=== PATIENT | male | born 1945 | race Caucasian/White ===

== ENCOUNTER 2022-04-05 06:11 | Outpatient (REF) | payer MEDICARE, SELFPAY ==
[2022-04-05 12:03] LABS: Hematocrit 48.7 % (42.0-52.0); Hemoglobin 16.5 g/dl (14.0-18.0); Mean Corpuscular HGB Conc 33.9 g/dl (31.0-36.0); Mean Corpuscular Hemoglobin 30.7 pg (27.0-33.0); Mean Corpuscular Volume 90.7 fL (80.0-98.0); Mean Platelet Volume 9.9 fL (9.4-12.4); Platelet Count 214 X10*3/uL (160-400); Red Blood Count 5.37 X10*6/uL (4.60-5.80); Red Cell Distribution Width 12.2 % (11.0-16.0)
[2022-04-05 12:12] LABS: Alanine Aminotransferase 22 U/L (0-40); Alkaline Phosphatase 104 U/L (39-117); Anion Gap 14 (12-20); Aspartate Amino Transferase 21 U/L (5-37); Bilirubin Total 1.2 mg/dL (0.0-1.0); Blood Urea Nitrogen 10 mg/dL (9-16); Calcium 9.5 mg/dL (8.4-10.2); Carbon Dioxide 32 mmol/L (22-29); Chloride 99 mmol/L (96-108); Cholesterol 257 mg/dL; Estimated Glomerular Filt Rate > 60; Glucose Fasting 241 mg/dL (60-99); HDL Cholesterol 70 mg/dL; Iron 139 mcg/dL (45-160); LDL Cholesterol Calculated 157 mg/dl; Percent Iron Saturation 49 % (15-50); Potassium 4.6 mmol/L (3.3-5.1); Sodium 140 mmol/L (135-145); Total Iron Binding Capacity 282 mcg/dL (228-428); Total Protein 7.1 g/dL (6.5-8.0); Triglycerides 150 mg/dL; Unsaturated Iron Binding 143 ug/dL
[2022-04-05 12:34] LABS: TSH reflex Free T4 2.41 uIU/mL (0.32-4.0)
== END 2022-04-05 06:12 | disposition home or self-care (01) ==
LOC: HO.HMGCLDS 06:11
PROVIDERS: PCP Physician Assistant; Visit Provider Physician Assistant
DX: Z13.29 Encounter for screening for other suspected endocrine disorder (principal); Z13.220 Encounter for screening for lipoid disorders; R06.02 Shortness of breath; D50.9 Iron deficiency anemia, unspecified
CPT/HCPCS: 36415; 80053; 80061; 83540; 84443; 85027

== ENCOUNTER 2022-10-23 06:11 | Outpatient (REF) | payer MEDICARE, SELFPAY ==
[2022-10-23 11:19] LABS: MANUAL DIFF FLAG NO
[2022-10-23 11:28] LABS: Basophils Absolute Auto 0.1 X10*3/uL (0.0-0.2); Basophils Percent Auto 0.7 % (0-2); Eosinophils Absolute Auto 0.3 X10*3/uL (0.0-0.4); Eosinophils Percent Auto 4.3 % (0-4); Hematocrit 46.1 % (42.0-52.0); Hemoglobin 15.4 g/dl (14.0-18.0); Imm Gran Abs Auto 0.02 X10*3/uL (0.00-0.03); Imm Gran Pct Auto 0.3 % (0.0-0.4); Lymphocytes Absolute Auto 2.4 X10*3/uL (1.2-4.9); Lymphocytes Percent Auto 32.3 % (20-40); Mean Corpuscular HGB Conc 33.4 g/dl (31.0-36.0); Mean Corpuscular Hemoglobin 30.4 pg (27.0-33.0); Mean Corpuscular Volume 91.1 fL (80.0-98.0); Mean Platelet Volume 9.4 fL (9.4-12.4); Monocytes Absolute Auto 0.7 X10*3/uL (0.1-1.2); Monocytes Percent Auto 9.2 % (2-11); Neutrophils Absolute Auto 3.9 x10*3/uL (2.0-8.3); Neutrophils Percent Auto 53.2 % (45-73); Platelet Count 245 X10*3/uL (160-400); Red Blood Count 5.06 X10*6/uL (4.60-5.80); Red Cell Distribution Width 12.6 % (11.0-16.0); White Blood Count 7.4 X10*3/uL (4.8-10.8)
[2022-10-23 12:15] LABS: Creatinine Urine 117.45 mg/dL; Microalbum/Creatinine Ratio Ur 5.9 ug/mg cr
[2022-10-23 12:30] LABS: Alanine Aminotransferase 15 U/L (0-40); Alkaline Phosphatase 94 U/L (39-117); Anion Gap 11 (12-20); Aspartate Amino Transferase 17 U/L (5-37); Bilirubin Total 0.8 mg/dL (0.0-1.0); Blood Urea Nitrogen 12 mg/dL (9-16); Calcium 9.6 mg/dL (8.4-10.2); Carbon Dioxide 35 mmol/L (22-29); Chloride 99 mmol/L (96-108); Cholesterol 235 mg/dL; Estimated Glomerular Filt Rate > 60; Glucose Fasting 139 mg/dL (60-99); HDL Cholesterol 69 mg/dL; LDL Cholesterol Calculated 138 mg/dl; Potassium 4.3 mmol/L (3.3-5.1); Prostate Specific Antigen Scr 5.05 ng/mL (<0.05-4.0); Sodium 141 mmol/L (135-145); TSH reflex Free T4 3.07 uIU/mL (0.32-4.0); Total Protein 7.1 g/dL (6.5-8.0); Triglycerides 144 mg/dL
== END 2022-10-23 06:12 | disposition home or self-care (01) ==
LOC: HO.HMGCLDS 06:11
PROVIDERS: PCP Physician Assistant; Visit Provider Physician Assistant
DX: Z12.5 Encounter for screening for malignant neoplasm of prostate (principal); E11.65 Type 2 diabetes mellitus with hyperglycemia
CPT/HCPCS: 36415; 80053; 80061; 82043; 84153; 84443; 85025

== ENCOUNTER 2023-07-28 06:22 | Outpatient (REF) | payer MEDICARE, SELFPAY ==
[2023-07-28 11:46] LABS: Hematocrit 45.8 % (42.0-52.0); Hemoglobin 15.2 g/dl (14.0-18.0); Mean Corpuscular HGB Conc 33.2 g/dl (31.0-36.0); Mean Corpuscular Hemoglobin 30.5 pg (27.0-33.0); Mean Corpuscular Volume 91.8 fL (80.0-98.0); Mean Platelet Volume 9.1 fL (9.4-12.4); Platelet Count 224 X10*3/uL (160-400); Red Blood Count 4.99 X10*6/uL (4.60-5.80); Red Cell Distribution Width 12.5 % (11.0-16.0); White Blood Count 8.1 X10*3/uL (4.8-10.8)
[2023-07-28 12:07] LABS: Alanine Aminotransferase 15 U/L (0-40); Albumin Level 3.9 g/dL (3.5-5.0); Alkaline Phosphatase 90 U/L (39-117); Anion Gap 13 (12-20); Aspartate Amino Transferase 21 U/L (5-37); Bilirubin Total 0.7 mg/dL (0.0-1.0); Blood Urea Nitrogen 7 mg/dL (9-16); Calcium 9.1 mg/dL (8.4-10.2); Carbon Dioxide 30 mmol/L (22-29); Chloride 101 mmol/L (96-108); Cholesterol 226 mg/dL (<200); Estimated Glomerular Filt Rate > 60; Glucose Fasting 141 mg/dL (60-99); HDL Cholesterol 57 mg/dL (>40); LDL Cholesterol Calculated 132 mg/dL (<100); Potassium 4.3 mmol/L (3.3-5.1); Sodium 140 mmol/L (135-145); Triglycerides 186 mg/dL (<150)
[2023-07-28 12:20] LABS: Prostate Specific Antigen Scr 5.83 ng/mL (<0.05-4.0)
== END 2023-07-28 06:23 | disposition home or self-care (01) ==
LOC: HO.HMGCLDS 06:22
PROVIDERS: PCP Physician Assistant; Visit Provider Physician Assistant
DX: Z12.5 Encounter for screening for malignant neoplasm of prostate (principal); R97.20 Elevated prostate specific antigen [PSA]; E78.2 Mixed hyperlipidemia
CPT/HCPCS: 36415; 80053; 80061; 84153; 84443; 85027

== ENCOUNTER 2023-07-31 13:34 | Outpatient (AMB) | payer MEDICARE, SELFPAY ==
--- NOTE | 2023-07-31 13:36 | MHC.PC.OV ---
Vital Signs 07/31/23 13:40 Height 5 ft 11 in Weight 195 lb 8 oz BMI 27.3 BP 150/88 H Blood Pressure Location Lt brachial Position Sitting Pulse 104 H Pulse Source Pulse Oximeter Pulse Oximetry (%) 94 Oxygen Delivery Method Room Air Intake Visit Reasons: f/u DMII Intake Note: Patient is here to follow up on DMII. Centrifuge Separator Tender Required: No Clinical Laboratory Manager: Not Required per policy Accompanied by: Self / Same As Patient Allergies No Known Allergies Allergy (Verified 07/31/23 13:53) Medication List - Last Reconciled 07/31/23 by Sky Fletcher PA-C albuterol sulfate 90 mcg/actuation 1 inh inhalation QID PRN 30 days blood sugar diagnostic (FreeStyle Lite Strips) As directed blood-glucose meter (FreeStyle Lite Meter kit) As directed lancets (FreeStyle Lancets) As directed metformin 500 mg PO DAILY 30 days Tobacco use date assessed: 07/31/23 Fall risk assessment: No Falls in past year Last assessed Fall Risk: 07/31/23 Dental Screening Dental Screen Date: 07/31/23 Did you have a dental visit in the last 12 months?: Yes Did you have a dental problem in the last 6 months where you did not have access to dental care?: No Was dental information given to patient?: Patient has dentist HPI f/u DMII HPI Details Patient is a 77-year-old male here today for follow-up visit.? Pmhx of type 2 diabetes, hyperlipidemia Elevated blood pressure readings:? Home readings are 110- 120s systolic .? He reports he has always had elevated blood pressures at doctor visits.? Likely has white coat hypertension.? Hold off on blood pressure medication at this time. .. Type 2 diabetes :? Today's A1c is elevated at 7.4, he has unfortunately gained some weight since last office visit Patient continues metformin 500 daily which has been decreased recently due to having low blood sugars. He reports some dietary indiscretion. .. Elevated PSA: He is interested in starting saw palmetto for his prostate. Advised on urology evaluation patient declines at this time. He does report at times having weak urinary stream and nocturia. Has been trying Saw palmetto. Will continue to follow PSA HLD: He does have LDL 135 and does understand this is elevated cardiovascular risk.? He is not interested in statin therapy. Laboratory Tests 10/23/22 10/31/22 06:26 15:25 Fasting Glucose 139 H Hgb A1c (Clinic) 6.4 H Cholesterol 235 LDL Cholesterol, C alc 138 PSA Screen 5.05 H TSH 3.07 PFSH Medical History Cataracts, bilateral Surgical History History of cataract Social History Housing: House Alcohol intake: never Patient Tobacco Use Status: Former Tobacco user Tobacco use type: Cigarette e-Cigarette/Vaping Use: Never Used Second Hand Smoke Exposure: No service: Yes Current occupational status: retired Cognitive needs: No Hearing needs: No Vision needs: Yes Questionnaire Thrive Questionnaire Date Thrive assessed: 10/31/22 MARIA DEL CARMEN-7 AMB Questionnaire MARIA DEL CARMEN-7 Date MARIA DEL CARMEN - 7 assessed: 10/31/22 Source: Developed by Drs. Lucio Estrada, Kera Frederick, Alvino Gilliam and colleagues, with an educational julian from [employer]. Review of Systems Const Denies headache(s) Eyes Denies loss of vision ENT Denies vertigo, Denies dizziness, Denies headache(s) and Denies sore throat Card Denies chest pain, Denies leg edema and Denies lightheadedness Resp Denies cough, Denies hemoptysis and Denies wheezing GI Denies abdominal pain, Denies melena, Denies constipation, Denies diarrhea and Denies vomiting Denies dysuria, Denies urinary frequency and Denies urinary urgency Musc Denies arthralgias, Denies joint swelling, Denies numbness and Denies tingling Neuro Denies Abnormal speech present, Denies behavioral changes, Denies vertigo, Denies dizziness, Denies headache(s), Denies loss of vision, Denies memory loss, Denies numbness and Denies tingling Psych Denies anxiety, Denies behavioral changes, Denies depression, Denies memory loss and Denies panic attacks Ford/Lymph Denies easy bleeding and Denies easy bruising Aller/Immun Denies wheezing Physical exam (Primary Care) Vital Signs: Last Vital Signs Pulse 104 H 07/31/23 13:40 BP 150/88 H 07/31/23 13:40 Pulse Ox 94 07/31/23 13:40 Oxygen Delivery Method Room Air 07/31/23 13:40 BMI result Body Mass Index 27.3 Tobacco/Smoking Status: Tobacco use Status Tobacco use date assessed 07/31/23 07/31/23 13:39 Patient Tobacco Use Status Former Tobacco user 07/31/23 13:46 Tobacco use type Cigarette 07/31/23 13:46 e-Cigarette/Vaping Use Never Used 07/31/23 13:46 Thrive Assessment: Date of Thrive Assessment Date Thrive assessed 10/31/22 07/31/23 13:39 Const General: healthy appearing, no acute distress, alert and awake Nutritional Appearance: well nourished Orientation/consciousness: oriented to person, oriented to place and oriented to time HENMT Ears: TM's normal bilaterally General nose exam: Normal nasal mucous membranes and turbinates present Eyes Conjunctivae: conjunctivae normal Sclerae: sclerae normal Pupils: Equal, round and reactive pupils present Neck Neck: Yes no lymphadenopathy and Yes no JVD Thyroid: Thyroid normal Carotids: no bruits Resp Effort & Inspection: normal respiratory effort and not tachypneic Auscultation: no crackles, no rales, no rhonchi and no wheezes Cardio Rate: regular rate Rhythm: regular rhythm Heart sounds: no murmurs and normal S1 and S2 GI Palpation (GI): Soft to palpation, nontender, no hepatomegaly and no splenomegaly Auscultation: normal bowel sounds Skin General skin exam: no rashes or lesions noted and dry skin Neuro General: oriented to person, oriented to place and oriented to time Cranial nerves: Yes Equal, round and reactive pupils present Speech: No Abnormal speech present Gait exam (Neuro): Normal gait present Motor exam (neuro): no tremor noted Extrem Right upper extremity: full ROM Left upper extremity: full ROM Right lower extremity: full ROM; no edema Left lower extremity: full ROM; no edema Psych Mental Status: mental status grossly normal Speech and movement: Normal speech and movement present Affect: normal affect Attitude: cooperative Thought process: Normal thought process present Office Procedures Flu Questionnaire Does the patient have a severe egg allergy?: No Does the patient have severe life threatening allergies?: No Does the patient have a fever or illness today?: No Has the patient ever had Guillain-Irving Syndrome?: No Has the patient ever had any past reaction to a flu shot?: No Results AMB Hemoglobin A1c AMB Hemoglobin A1c 7.4 % Last Edit by EDUAR Joe on 07/31/23 13:51 Immunizations flu vacc [id number] 6mos up(PF) 60 mcg(15 mcgx4)/0.5 mL IM syringe Performing Provider: Sky Fletcher PA-C [facility] Documented (not given) by: EDUAR Joe on 07/31/23 13:46 Reason Not Given: Patient Refused Results Reviewed Results Reviewed: Laboratory Last Values Hgb A1c (Clinic) 7.4 % (4.0-6.0) H 07/31/23 13:36 Assessment and Plan Assessment & Plan (1) DMII (diabetes mellitus, type 2): Code(s): E11.9 - Type 2 diabetes mellitus without complications Qualifiers: Diabetes mellitus complication status: with hyperglycemia Diabetes mellitus detention insulin use: without buttermaker continuous churn use Qualified Code(s): E11.65 - Type 2 diabetes mellitus with hyperglycemia Plan: TODAY'S A1C IS 7.4. HE DOES REPORT SOME DIETARY INDISCRETION. He will try to reduce his carbohydrates. CONTINUES ON METFORMIN 500 WHICH HAS RECENTLY BEEN DECREASED. Goal A1c is to be below 7.0. (2) HTN (hypertension): Code(s): I10 - Essential (primary) hypertension Qualifiers: Hypertension type: primary hypertension Qualified Code(s): I10 - Essential (primary) hypertension Plan: Patient's blood pressure slightly elevated today in office. Does white coat hypertension as his home readings have been 110s to 120 systolic. Otherwise denies any chest discomfort, headaches, dizziness. Will continue to manage his blood pressure without medication at this time as his home readings are stable. Goal blood pressure remain below 140/90 at home. (3) HLD (hyperlipidemia): Code(s): E78.5 - Hyperlipidemia, unspecified Qualifiers: Hyperlipidemia type: mixed hyperlipidemia Qualified Code(s): E78.2 - Mixed hyperlipidemia Plan: Patient's most recent lipid panel showing slightly elevated readings. Has made lifestyle modifications and his total cholesterol and LDL has improved. LDL is still remains above goal of 100. Strongly advised starting statin therapy though patient declines. Goal LDL to be below 100 (4) Elevated PSA: Code(s): R97.20 - Elevated prostate specific antigen [PSA] Plan: Patient not interested in seeing Urology at this time. He will continue saw palmetto supplement to help reduce size of his prostate. He does report some nocturia times. Orders: Orders AMB Hemoglobin A1c 07/31/23 E11.9 - Type 2 diabetes mellitus without complications Lipid Panel 07/31/23 E78.2 - Mixed hyperlipidemia Complete Blood Count no Diff 07/31/23 I10 - Essential (primary) hypertension Influenza [id number] Immunization 07/31/23 Z23 - Encounter for immunization Hemoglobin A1c 07/31/23 E11.65 - Type 2 diabetes mellitus with hyperglycemia Comprehensive [place]. Panel Fast 07/31/23 I10 - Essential (primary) hypertension Coding Level of Care Code Est Pt Level 4 (61449) Diagnoses Type 2 diabetes mellitus with hyperglycemia, without long-term current use of insulin E11.65 Diabetes mellitus complication status: with hyperglycemia Diabetes mellitus buttermaker continuous churn insulin use: without detention use Primary hypertension I10 Hypertension type: primary hypertension Mixed hyperlipidemia E78.2 Hyperlipidemia type: mixed hyperlipidemia Elevated PSA R97.20
[2023-07-31 13:40] VITALS: BP 150/88; PULSE 104; O2SAT 94; BMI 27.3
== END 2023-07-31 14:18 | disposition home or self-care (01) ==
PROVIDERS: PCP Physician Assistant; Visit Provider Physician Assistant
DX: E11.9 Type 2 diabetes mellitus without complications (principal)
CPT/HCPCS: 83036; 99214

== ENCOUNTER 2023-11-07 12:43 | Outpatient (AMB) | payer MEDICARE, SELFPAY ==
--- NOTE | 2023-11-07 12:47 | A.OFFPC_ITS ---
Vital Signs 11/07/23 12:48 Height 5 ft 11 in Weight 186 lb BMI 25.9 BP 158/70 H Blood Pressure Location Lt brachial Position Sitting Pulse 130 H Pulse Source Pulse Oximeter Pulse Oximetry (%) 76 L Oxygen Delivery Method Room Air Intake Visit Reasons: Low oxygen Keno Dealer Required: No City Collector: Not Required per policy Accompanied by: Self / Same As Patient Allergies No Known Allergies Allergy (Verified 11/07/23 12:48) Tobacco use date assessed: 11/07/23 Fall risk assessment: No Falls in past year Last assessed Fall Risk: 11/07/23 Dental Screening Dental Screen Date: 11/07/23 Did you have a dental visit in the last 12 months?: Yes Did you have a dental problem in the last 6 months where you did not have access to dental care?: No Was dental information given to patient?: Patient has dentist HPI Low oxygen HPI Details 77-year-old male with a history of diabe elva mellitus hypercholesterolemia hypertension being seen for the 1st time. DM not under control, problem with sob but state 3 years already. hx of smoking - 16 years old start and stopped 1999- [facility] exposure to agent orange. Discussed with the patient regarding cholesterol blood work as well as blood pressure and diabetes. Patient states eating a little bit better. Patient also has depression relates to me last year as well as his dog and has been depressed. Has nurse friend who has forced him to be seen today. Noted hypoxemic at 88% and on walking goes down to 70s. [facility] Medical History Cataracts, bilateral Surgical History History of cataract Social History Housing: House Alcohol intake: never Patient Tobacco Use Status: Former Tobacco user Tobacco use type: Cigarette e-Cigarette/Vaping Use: Never Used Second Hand Smoke Exposure: No service: Yes Current occupational status: retired Cognitive needs: No Hearing needs: No Vision needs: Yes Questionnaire PHQ-9 Over the last 2 weeks, how often have you been bothered by any of the following problems? 1. Little interest or pleasure in doing things: not at all 2. Feeling down, depressed, or hopeless: not at all 3. Trouble falling or staying asleep, or sleeping too much: not at all 4. Feeling tired or having little energy: not at all 5. Poor appetite or overeating: not at all 6. Feeling bad about yourself - or that you are a failure or have let yourself or your family down: not at all 7. Trouble concentrating on things, such as reading the newspaper or watching television: not at all 8. Moving or speaking so slowly that other people could have noticed. Or the opposite - being so fidgety or restless that you have been moving around a lot more than usual: not at all 9. Thoughts that you would be better off or of hurting yourself in some way: not at all Total score: 0 Depression Screening Interpretation: Negative Depression Screening Done: Yes 21518 - PHQ-9 Billing: Yes Source: Developed by Drs. Lucio Estrada, Kera Frederick, Alvino Gilliam and colleagues, with an educational julian from [employer]. Thrive Questionnaire Date Thrive assessed: 11/07/23 I am a: Patient What is your living situation today?: I have a steady place to live Within the past 12 months, did the food you bought not last and you didn't have the money to get more?: Never true Within the past 12 months, did you worry whether your food would run out before you got money to buy more?: Never true Do you have trouble paying for medicines?: No Do you have trouble getting transportation to medical appointments?: No Do you have trouble paying your heating and electricity bill?: No Do you have trouble taking care of your child, family member or friend?: No Do you have trouble with day-to-day activities such as bathing, preparing meals, shopping, managing finances, etc.?: No Are you currently unemployed and looking for a job?: No Are you interested in more education?: No Please select the resources that you would like help with: None AUDIT C Alcohol Use Questionnaire (AUDIT-C) 1. How often do you have a drink containing alcohol?: Never 3. How often do you have six or more drinks on one occasion?: Never Total Score: 0 MARIA DEL CARMEN-7 AMB Questionnaire MARIA DEL CARMEN-7 Date MARIA DEL CARMEN - 7 assessed: 11/07/23 Feeling nervous, anxious, or on edge: 0 = Not at all Not being able to stop or control worryin = Not at all Worrying too much about different things: 0 = Not at all Trouble relaxin = Not at all Being so restless that it is hard to sit still: 0 = Not at all Becoming easily annoyed or irritable: 0 = Not at all Feeling afraid as if something awful might happen: 0 = Not at all Total MARIA DEL CARMEN-7 score (0-4 normal; 5-9 mild; 10-14 moderate; 15-21 severe): 0 Source: Developed by Drs. Lucio Estrada, Kera Frederick, Alvino Gilliam and colleagues, with an educational julian from [employer]. Physical exam (Primary Care) Vital Signs: Last Vital Signs Pulse 130 H 11/07/23 12:48 BP 158/70 H 11/07/23 12:48 Pulse Ox 76 L 11/07/23 12:48 Oxygen Delivery Method Room Air 11/07/23 12:48 BMI result Body Mass Index 25.9 Tobacco/Smoking Status: Tobacco use Status Tobacco use date assessed 11/07/23 11/07/23 12:54 Patient Tobacco Use Status Former Tobacco user 11/07/23 12:54 Tobacco use type Cigarette 11/07/23 12:54 e-Cigarette/Vaping Use Never Used 11/07/23 12:54 PHQ-9: PHQ-9 Score PHQ-9: Total score 0 11/07/23 13:52 Depression Screening Interpretation: Negative Thrive Assessment: Date of Thrive Assessment Date Thrive assessed 11/07/23 11/07/23 12:54 Const General: alert; No acute distress Eyes Conjunctivae: conjunctivae normal Resp Auscultation: clear to auscultation bilaterally Cardio Rate: regular rate Rhythm: regular rhythm GI Inspection: Yes normal to inspection Extrem General: Yes normal to inspection and No edema Results AMB Hemoglobin A1c AMB Hemoglobin A1c 7.5 % Last Edit by EDUAR Baird on 11/07/23 13:52 Results Reviewed Results Reviewed: Laboratory Last Values Hgb A1c (Clinic) 7.5 % (4.0-6.0) H 11/07/23 13:41 Assessment and Plan Assessment & Plan (1) Type 2 diabetes mellitus with hyperglycemia: Code(s): E11.65 - Type 2 diabetes mellitus with hyperglycemia Plan: Decrease the amount of carbohydrate intake, pasta, bread, rice and potatoes are all sugar and that is aside from all the sweet stuff, remember that fruits are good but they are Sweet also. Hemoglobin A1c goal of less than 7.0 will increase the metformin to twice a day. (2) HTN (hypertension): Code(s): I10 - Essential (primary) hypertension Qualifiers: Hypertension type: primary hypertension Qualified Code(s): I10 - Essential (primary) hypertension Plan: Patient not on any medication for blood pressure and declined. Low-salt diet (3) HLD (hyperlipidemia): Code(s): E78.5 - Hyperlipidemia, unspecified Qualifiers: Hyperlipidemia type: mixed hyperlipidemia Qualified Code(s): E78.2 - Mixed hyperlipidemia Plan: Avoid fried foods, chicken skin, eggs, butter margarine, pastries and meat. Be it pork or beef they have a lot of cholesterol LDL goal of less than 100 and triglyceride of less than 150. Patient not on any medication and declines (4) SOB (shortness of breath) on exertion: Code(s): R06.02 - Shortness of breath Plan: pateint sitting O2 sat 88 will need oxygen discussed with the patient on the need to get pulmonary referral as well as getting the oxygen. Workup started (5) Major depression: Code(s): F32.9 - Major depressive disorder, single episode, unspecified Plan: Patient declines any referral for counseling and medication Orders: Orders AMB Hemoglobin A1c Today E11.9 - Type 2 diabetes mellitus without complications XR chest 2V Today R06.02 - Shortness of breath PFT pulmonary function test Today R06.02 - Shortness of breath Referrals Pulmonology Referral R06.02 - Shortness of breath Medications: New [Oxygen 2 L NC] As directed 1 ea 0RF R06.02 - Shortness of breath Changed From metformin 500 mg PO DAILY 30 days 30 tabs 3RF E11.65 - Type 2 diabetes mellitus with hyperglycemia To metformin 500 mg PO BIDWMEAL 30 days 60 tabs 3RF E11.65 - Type 2 diabetes mellitus with hyperglycemia Refilled albuterol sulfate 90 mcg/actuation 1 inh inhalation QID 30 days PRN 8.5 grams 3RF shortness of breath or wheezing R06.02 - Shortness of breath Coding Level of Care Code Est Pt Level 4 (26190) Diagnoses Type 2 diabetes mellitus with hyperglycemia E11.65 Primary hypertension I10 Hypertension type: primary hypertension Mixed hyperlipidemia E78.2 Hyperlipidemia type: mixed hyperlipidemia SOB (shortness of breath) on exertion R06.02 Major depression F32.9
[2023-11-07 12:48] VITALS: BP 158/70; PULSE 130; O2SAT 76; BMI 25.9
== END 2023-11-07 14:22 | disposition home or self-care (01) ==
PROVIDERS: PCP Physician Assistant; Visit Provider Internal Medicine
DX: E11.65 Type 2 diabetes mellitus with hyperglycemia (principal); E11.69 Type 2 diabetes mellitus with other specified complication; I10 Essential (primary) hypertension; E78.2 Mixed hyperlipidemia; R06.02 Shortness of breath; F32.9 Major depressive disorder, single episode, unspecified
CPT/HCPCS: 83036; 99214

== ENCOUNTER 2023-11-27 11:52 | Outpatient (REF) | payer MEDICARE, SELFPAY ==
--- NOTE | ~2023-11-27 | XR_ITS ---
EXAMINATION: XR CHEST CLINICAL INFORMATION: Shortness of breath COMPARISON: None available. TECHNIQUE: 2 views of the chest were obtained. FINDINGS: Diffuse peribronchial vascular opacities may reflect edema or atypical infection. Effusion cannot be excluded as the bilateral costophrenic angles are not included in [id number]. XR/XR chest 2V IMPRESSION: Diffuse peribronchial vascular opacities may reflect edema or atypical infection. Effusion cannot be excluded as the bilateral costophrenic angles are not included in [id number].
== END 2023-11-27 11:53 | disposition home or self-care (01) ==
LOC: HO.XRAY 11:52
PROVIDERS: Visit Provider Internal Medicine
DX: R06.02 Shortness of breath (principal)
CPT/HCPCS: 71046

== ENCOUNTER 2023-12-11 13:50 | Outpatient (AMB) | payer MEDICARE, SELFPAY ==
[2023-12-11 13:57] VITALS: BP 162/80; PULSE 98; O2SAT 92; BMI 25.7
--- NOTE | 2023-12-11 13:57 | MHC.PC.OV ---
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 Required: No Allergies No Known Allergies Allergy (Verified 12/11/23 14:09) Medication List - Last Reconciled 12/11/23 by Sky Fletcher PA-C albuterol sulfate 90 mcg/actuation 1 inh inhalation QID PRN 30 days blood sugar diagnostic (FreeStyle Lite Strips) As directed blood-glucose meter (FreeStyle Lite Meter kit) As directed lancets (FreeStyle Lancets) As directed metformin 500 mg PO BIDWMEAL 30 days [Oxygen 2 L NC As directed] Tobacco use date assessed: 12/11/23 Fall risk assessment: No Falls in past year Last assessed Fall Risk: 12/11/23 HPI Follow-up type 2 diabetes HPI Details Patient is a 77-year-old male here today for follow-up visit.? Pmhx of type 2 diabetes, hyperlipidemia Exertional hypoxemia: Found to low oxygen exertion, chest x-ray showing-->Diffuse peribronchial vascular opacities may reflect edema or atypical infection. Did start antibiotics and feeling better though still has some SOB excertion. Now has a O2 at home. Interested in getting a more portable O2 device . ---> likely has COPD was a previous smoker, exposed to agent orange in the .. We did discuss starting a maintenance inhaler though would like to hold off and discuss with pulmonology Elevated blood pressure readings:? Home readings are 110- 120s systolic .? He reports he has always had elevated blood pressures at doctor visits.? Likely has white coat hypertension.? Hold off on blood pressure medication at this time. .. Type 2 diabetes :? Today's A1c is elevated at 7.4, he has unfortunately gained some weight since last office visit Patient continues metformin 500 daily which has been decreased recently due to having low blood sugars. He reports some dietary indiscretion. .. Hyper lipidemia: Lipid panel showing borderline high total cholesterol and elevated LDL at 132. He does understand his cardiovascular risk being a diabetic though continues to decline starting statin therapy. .. Elevated PSA: He has started saw STARFACE for his prostate. Advised on urology evaluation patient declines at this time. He does report at times having weak urinary stream and nocturia. Has been trying Saw palmetto. Will continue to follow PSA HLD: He does have LDL 135 and does understand this is elevated cardiovascular risk.? He is not interested in statin therapy. [facility]LY [facility], [facility] Medical History Cataracts, bilateral Surgical History History of cataract Social History Housing: House Alcohol intake: never Patient Tobacco Use Status: Former Tobacco user Tobacco use type: Cigarette e-Cigarette/Vaping Use: Never Used Second Hand Smoke Exposure: No service: Yes Current occupational status: retired Cognitive needs: No Hearing needs: No Vision needs: Yes Questionnaire Thrive Questionnaire Date Thrive assessed: 11/07/23 AUDIT C Alcohol Use Questionnaire (AUDIT-C) 1. How often do you have a drink containing alcohol?: Never 3. How often do you have six or more drinks on one occasion?: Never Total Score: 0 MARIA DEL CARMEN-7 AMB Questionnaire MARIA DEL CARMEN-7 Date MARIA DEL CARMEN - 7 assessed: 11/07/23 Source: Developed by Drs. Lucio Estrada, Kear Frederick, Alvino Gilliam and colleagues, with an educational julian from [employer] Review of Systems Const Denies headache(s) Eyes Denies loss of vision ENT Denies vertigo, Denies dizziness, Denies headache(s) and Denies sore throat Card Denies chest pain, Denies leg edema and Denies lightheadedness Resp Denies cough, Denies hemoptysis and Denies wheezing GI Denies abdominal pain, Denies melena, Denies constipation, Denies diarrhea and Denies vomiting Denies dysuria, Denies urinary frequency and Denies urinary urgency Musc Denies arthralgias, Denies joint swelling, Denies numbness and Denies tingling Neuro Denies Abnormal speech present, Denies behavioral changes, Denies vertigo, Denies dizziness, Denies headache(s), Denies loss of vision, Denies memory loss, Denies numbness and Denies tingling Psych Denies anxiety, Denies behavioral changes, Denies depression, Denies memory loss and Denies panic attacks Ford/Lymph Denies easy bleeding and Denies easy bruising Aller/Immun Denies wheezing Physical exam (Primary Care) Vital Signs: Last Vital Signs Pulse 98 12/11/23 13:57 BP 162/80 H 12/11/23 13:57 Pulse Ox 92 12/11/23 13:57 Oxygen Delivery Method Room Air 12/11/23 13:57 BMI result Body Mass Index 25.7 Tobacco/Smoking Status: Tobacco use Status Tobacco use date assessed 12/11/23 12/11/23 13:58 Patient Tobacco Use Status Former Tobacco user 12/11/23 13:58 Tobacco use type Cigarette 12/11/23 13:58 e-Cigarette/Vaping Use Never Used 12/11/23 13:58 Thrive Assessment: Date of Thrive Assessment Date Thrive assessed 11/07/23 12/11/23 13:58 Const General: healthy appearing, no acute distress, alert and awake Nutritional Appearance: well nourished Orientation/consciousness: oriented to person, oriented to place and oriented to time HENMT Ears: TM's normal bilaterally General nose exam: Normal nasal mucous membranes and turbinates present Eyes Conjunctivae: conjunctivae normal Sclerae: sclerae normal Pupils: Equal, round and reactive pupils present Neck Neck: Yes no lymphadenopathy and Yes no JVD Thyroid: Thyroid normal Carotids: no bruits Resp Effort & Inspection: normal respiratory effort and not tachypneic Auscultation: no crackles, no rales, no rhonchi and no wheezes Cardio Rate: regular rate Rhythm: regular rhythm Heart sounds: no murmurs and normal S1 and S2 GI Palpation (GI): Soft to palpation, nontender, no hepatomegaly and no splenomegaly Auscultation: normal bowel sounds Skin General skin exam: no rashes or lesions noted and dry skin Neuro General: oriented to person, oriented to place and oriented to time Cranial nerves: Yes Equal, round and reactive pupils present Speech: No Abnormal speech present Gait exam (Neuro): Normal gait present Motor exam (neuro): no tremor noted Extrem Right upper extremity: full ROM Left upper extremity: full ROM Right lower extremity: full ROM; no edema Left lower extremity: full ROM; no edema Psych Mental Status: mental status grossly normal Speech and movement: Normal speech and movement present Affect: normal affect Attitude: cooperative Thought process: Normal thought process present Assessment and Plan Assessment & Plan (1) Type 2 diabetes mellitus with hyperglycemia: Code(s): E11.65 - Type 2 diabetes mellitus with hyperglycemia Qualifiers: Diabetes mellitus extermination inspector insulin use: without extermination inspector use Qualified Code(s): E11.65 - Type 2 diabetes mellitus with hyperglycemia Plan: Patient's type 2 diabetes suboptimally controlled with A1c is 7.5. His metformin has been increased to 1000 mg daily.. Decrease the amount of carbohydrate intake, pasta, bread, rice and potatoes are all sugar and that is aside from all the sweet stuff, remember that fruits are good but they are Sweet also. Hemoglobin A1c goal of less than 7.0 will increase the metformin to twice a day. (2) HTN (hypertension): Code(s): I10 - Essential (primary) hypertension Qualifiers: Hypertension type: primary hypertension Qualified Code(s): I10 - Essential (primary) hypertension Plan: Blood pressure remains elevated, continues to decline offers to start blood pressure medication. He reports that home blood pressures are 120s to 130 systolic. He denies any headache, chest discomforts or dizziness.. Goal blood pressures to remain below 140/90 (3) HLD (hyperlipidemia): Code(s): E78.5 - Hyperlipidemia, unspecified Qualifiers: Hyperlipidemia type: mixed hyperlipidemia Qualified Code(s): E78.2 - Mixed hyperlipidemia Plan: Patient's lipid panel elevated with LDL above goal of 100. Still declining starting statin therapy though urgently advised to do so. Nunh-ioh-lupucgo vitamins he will work on dietary modifications. Avoid fried foods, chicken skin, eggs, butter margarine, pastries and meat. Be it pork or beef they have a lot of cholesterol LDL goal of less than 100 and triglyceride of less than 150. Patient not on any medication and declines (4) Exercise hypoxemia: Code(s): R09.02 - Hypoxemia Plan: Had exertional hypoxemia. Now has home O2 in his interested in more portable oxygen device. Does use an albuterol inhaler on as needed basis which works well for him. Likely has COPD as he has been a previous smoker and exposed to Agent [place] in the . He has upcoming appointment with pulmonology will discuss perhaps starting a maintenance inhaler. Orders: Orders Prostate Specific Antigen Scr Today Z12.5 - Encounter for screening for malignant neoplasm of prostate Coding Level of Care Code Est Pt Level 4 (11722) Diagnoses Type 2 diabetes mellitus with hyperglycemia, without long-term current use of insulin E11.65 Diabetes mellitus correction insulin use: without correction use Primary hypertension I10 Hypertension type: primary hypertension Mixed hyperlipidemia E78.2 Hyperlipidemia type: mixed hyperlipidemia Exercise hypoxemia R09.02
== END 2023-12-11 14:42 | disposition home or self-care (01) ==
PROVIDERS: PCP Physician Assistant; Visit Provider Physician Assistant
DX: E11.65 Type 2 diabetes mellitus with hyperglycemia (principal); I10 Essential (primary) hypertension; E78.2 Mixed hyperlipidemia; R09.02 Hypoxemia
CPT/HCPCS: 99214

== ENCOUNTER 2023-12-18 09:40 | Outpatient (AMB) | payer MEDICARE, SELFPAY ==
[2023-12-18 09:43] VITALS: BP 162/82; PULSE 112; O2SAT 88; BMI 25.8
--- NOTE | 2023-12-18 09:43 | A.OFFVIS_ITS ---
Intake Vital Signs 12/18/23 09:43 Height 5 ft 11 in Weight 185 lb BMI 25.8 BP 162/82 H Blood Pressure Location Lt brachial Position Sitting Pulse 112 H Pulse Source Doppler Pulse Oximetry (%) 88 L Oxygen Delivery Method Room Air Intake Visit Reasons: Shortness of Breath Allergies No Known Allergies Allergy (Verified 12/18/23 09:50) HPI Shortness of Breath HPI Details 78-year-old gentleman, 40+ pack-year smo ker, quit 2006 referred of dyspnea exertion. Patient has been started on supplemental oxygen by his primary care provider after recent bout of pneumonia in the beginning of the year. Patient denies prior personal or family history of lung disease. He has been using albuterol MDI with some relief of his underlying dyspnea on exertion. 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 Patient is currently using supplemental oxygen 2 L with exertion, but wants to get a portable oxygen concentrator. [facility] Medical History (Updated 12/18/23 @ 11:11 by Arik Middleton MD) Cataracts, bilateral Surgical History History of cataract Social History Housing: House Alcohol intake: never Patient Tobacco Use Status: Former Tobacco user Tobacco use type: Cigarette e-Cigarette/Vaping Use: Never Used Second Hand Smoke Exposure: No service: Yes Current occupational status: retired Cognitive needs: No Hearing needs: No Vision needs: Yes Review of Systems Const Denies daytime sleepiness, Denies excessive sweating, Denies fatigue, Denies fever(s), Denies lethargy, Denies malaise, Denies night sweats, Denies snoring and Denies weight loss Eyes Denies blurry vision and Denies itchy eyes ENT Denies nasal congestion, Denies post nasal drip, Denies sinus pain, Denies sinus pressure and Denies other ( Thrush) Card Denies chest pain, Reports pedal edema, Denies dyspnea, Reports dyspnea on exertion, Denies orthopnea and Denies paroxysmal nocturnal dyspnea Resp Denies cough, Denies hemoptysis, Denies excessive phlegm production, Denies dyspnea, Reports dyspnea on exertion, Denies snoring and Denies wheezing GI Denies abdominal pain and Denies heartburn Musc Denies myalgias, Denies arthralgias and Denies joint swelling Skin/Breast Denies rash Neuro Denies memory loss and Denies seizure-like activity Psych Denies abnormal sleep pattern, Denies anxiety and Denies memory loss Endo Denies excessive sweating, Denies fatigue and Denies heat intolerance Ford/Lymph Denies easy bruising Aller/Immun Denies itchy eyes, Denies seasonal rhinorrhea and Denies wheezing Physical Exam Vital Signs: Last Vital Signs Pulse 112 H 12/18/23 09:43 BP 162/82 H 12/18/23 09:43 Pulse Ox 88 L 12/18/23 09:43 Oxygen Delivery Method Room Air 12/18/23 09:43 BMI result Body Mass Index 25.8 Const General: no acute distress and alert Nutritional Appearance: not obese Orientation/consciousness: Other orientation findings ( oriented) HEENT Head: Yes atraumatic Eyes General: appearance normal, both eyes and all related structures Sclerae: sclerae normal EOM: EOMs intact bilaterally Neck Neck: Yes supple Lymphatic: no lymphadenopathy noted Resp Effort & Inspection: normal respiratory effort and no use of accessory muscles Auscultation: clear to auscultation bilaterally Cardio Rate: regular rate Rhythm: regular rhythm Heart sounds: no gallops, no murmurs and no rubs Skin General skin exam: other ( warm) Extrem General: No clubbing, No cyanosis and Yes edema (1+ bilateral) Assessment & Plan Assessment & Plan (1) HSU (dyspnea on exertion): Code(s): R06.09 - Other forms of dyspnea Plan: Likely multifactorial with contribution from underlying pulmonary and cardiac etiologies. Will obtain full PFT to evaluate pulmonary component. Will obtain 2D echocardiogram to evaluate cardiac component. Will start on. Continue albuterol MDI. (2) ILD (interstitial lung disease): Code(s): J84.9 - Interstitial pulmonary disease, unspecified Plan: Concern for underlying asbestosis. CT chest ordered. (3) Supplemental oxygen dependent: Code(s): Z99.81 - Dependence on supplemental oxygen Plan: In office supplemental oxygen/6 minute walk test performed. Patient requires supplemental oxygen at 2-3 L with exertion. Patient wants to get a portable oxygen concentrator which his current company does not want to provide. Updated order placed with [employer]. Will check overnight oximetry. Orders: Orders PFT pulmonary function test Today R06.09 - Other forms of dyspnea CA echo transthoracic complete Today R06.09 - Other forms of dyspnea Overnight Pulse Oximetry Today R06.09 - Other forms of dyspnea CT chest wo IV con Today R06.09 - Other forms of dyspnea Medications: New Anoro Ellipta 62.5-25 mcg/actuation (umeclidinium-vilanterol) 1 inh inhalation DAILY 30 days 1 ea 6RF NS R06.09 - Other forms of dyspnea Coding Level of Care Code New Pt Level 4 (87883) Diagnoses HSU (dyspnea on exertion) R06.09 ILD (interstitial lung disease) J84.9 Supplemental oxygen dependent Z99.81
== END 2023-12-18 10:37 | disposition home or self-care (01) ==
PROVIDERS: PCP Physician Assistant; Visit Provider Internal Medicine Pulmonary Disease
DX: R06.09 Other forms of dyspnea (principal); J84.9 Interstitial pulmonary disease, unspecified; Z99.81 Dependence on supplemental oxygen
CPT/HCPCS: 99204

== ENCOUNTER → 2023-12-18 09:40 | Outpatient (BNVA) | payer MEDICARE, SELFPAY | PROVIDERS: PCP Physician Assistant; Visit Provider Internal Medicine Pulmonary Disease | DX: J84.9 Interstitial pulmonary disease, unspecified (principal); R06.09 Other forms of dyspnea; Z99.81 Dependence on supplemental oxygen | CPT/HCPCS: 99202 ==

== ENCOUNTER 2023-12-22 13:51 | Outpatient (REF) | payer MEDICARE, SELFPAY ==
[2023-12-22 10:49] VITALS: PULSE 108; RESP 16; O2SAT 91
--- NOTE | 2023-12-22 15:21 | PFT_ITS ---
Flows: FEV1: 33 % of predicted at 1.01 L FVC: 64 % of predicted at 2.62 L FEV1/FVC: 39 % Bronchodilator response: Absent Volumes: No lung volumes measurements available secondary to a technical issue. Diffusion capacity: Moderately decreased, adjusts to being mildly decreased after correction for alveolar ventilation. Impression: Severe obstructive ventilatory defect with no bronchodilator response. No lung volumes measurements available secondary to a technical issue. Decreased diffusion capacity suggests emphysema. MTDD
== END 2023-12-22 13:52 | disposition home or self-care (01) ==
LOC: HO.RESP 13:51
PROVIDERS: PCP Physician Assistant; Visit Provider Internal Medicine Pulmonary Disease
DX: R06.09 Other forms of dyspnea (principal)
CPT/HCPCS: 94010; 94640; 94727; 94729

== ENCOUNTER → 2023-12-22 15:21 | Outpatient (BNV) | payer MEDICARE, SELFPAY | PROVIDERS: PCP Physician Assistant; Visit Provider Internal Medicine Pulmonary Disease | DX: R06.09 Other forms of dyspnea (principal) | CPT/HCPCS: 94060; 94729 ==

== ENCOUNTER → 2024-01-16 12:57 | Outpatient (REF) | payer MEDICARE, SELFPAY ==
--- NOTE | ~2024-01-16 | CT_ITS ---
EXAMINATION: CT CHEST WITHOUT CONTRAST CLINICAL INFORMATION: Dyspnea on exertion COMPARISON: 11/27/2023 chest radiograph TECHNIQUE: Multidetector volumetric CT imaging of the chest was done. Axial MIP volume rendering provided. Sagittal and coronal reformatted images were obtained. This CT examination was performed using dose optimization techniques as appropriate, variously including the following: *Automated exposure control *Adjustment of mA and/or kV according to patient size (this includes techniques or standardized protocols for targeted exams where dose is matched to indication/reason for exam; i.e. extremities or head) *Use of iterative reconstruction technique DLP: 170 mGy-cm FINDINGS: EVALUATION ANALYST: Hyperinflation/emphysema LUNGS: Trachea and bronchi are patent. Severe emphysema with upper lobe predominance. 1.1 cm nodular nodular opacity associated with atelectasis/tethering to the pleura, 5:537, 7:80, 6:66 MEDIASTINUM: Unremarkable thyroid. Nonspecific nonpathologically enlarged mediastinal lymph nodes. Nonenlarged heart. No pericardial effusion. Nonaneurysmal aorta with atherosclerotic calcifications. Mildly ectatic pulmonary arteries. CORONARY ARTERY CALCIFICATION: Mild to moderate. PLEURA: There is no pleural effusion. No pleural mass or thickening. AXILLA: No lymphadenopathy. UPPER ABDOMEN: Pancreatic tail calcification. 2 to 3 mm right renal calculus versus vascular calcification. Tortuous calcified abdominal aorta. OSSEOUS AND SOFT TISSUE STRUCTURES: Gynecomastia. No suspicious osseous lesions. CT/CT chest wo IV con IMPRESSION: 1.1 cm right lower lobe nodular opacity, lung lesion versus nodular scarring/atelectasis. 3 month follow-up with LDCT. PET/CT should also be considered. Fleischner guidelines were followed.
--- NOTE | 2024-01-16 13:00 | CA_ITS ---
Transthoracic Echocardiogram Patient (Last, First, Middle): Lucio Srivastava C Gender: Male Date of : 1945 Age: 78 Procedure Date: 01/16/2024 Procedure Type: Transthoracic Echocardiogram Location: OP Height: 180.34 cm Weight: 83.92 kg BSA: 2.04 m2 Heart Rate: bpm BP: 160 / 70 mmHg Account Adjuster: TO Referring MD: Arik Middleton MD Symptoms: R06.09 - Other forms of dyspnea Study Quality: Fair ECG Rhythm: Sinus Conclusions: - The left ventricular systolic function is normal. The calculated ejection fraction is 67% by biplane method. - No obvious valvular pathology seen on this study. - There is mild calcification of the aortic valve. - There is no evidence of pulmonary hypertension. Findings Procedure Information The study quality is limited by the patients inability to tolerate the test. Left Ventricle Normal left ventricular cavity size. The left ventricular systolic function is normal. The calculated ejection fraction is 67% by biplane method. There is no evidence of regional wall motion abnormalities. Diastolic function is normal for age. Mild basal septal hypertrophy. Right Ventricle Mildly increased right ventricular cavity size. There is normal right ventricular systolic function. Atria Both atria are normal in size. Aortic Valve There is a normal trileaflet aortic valve. There is mild calcification of the aortic valve. There is no aortic valve stenosis. There is no aortic valve regurgitation. Mitral Valve The mitral valve appears normal. There is no mitral valve regurgitation. There is no mitral valve stenosis. Pulmonic Valve The pulmonic valve is likely normal. Tricuspid Valve There is trace tricuspid valve regurgitation. There is no evidence of pulmonary hypertension. Great Vessels The asc aorta is normal in size. Venous The inferior vena cava is normal in size and collapses greater than 50% with inspiration. Pericardium/Pleural There is no evidence of pericardial effusion. Prior Study Comparison No prior study available for comparison. Recommendations, Care & Conclusions No obvious valvular pathology seen on this study. Measurements 2D Linear Measurements IVSd: 1.37 0.6-0.9/0.6-1.0 cm LVIDd: 4.03 3.9-5.3/4.2-5.9 cm LVIDd Index: 1.98 2.4-3.2/2.2-3.1 cm/m2 LVIDs: 2.36 2.0-3.6 cm LVPWd: 1.16 0.7-1.1 cm LA Diam: 3.00 2.7-3.8/3.0-4.0 cm LAIDs Index: 1.47 1.5-2.3 cm/m2 LV Mass: 225.52 67-162/88-224 g LV Mass Index: 110.55 43-95/49-115 g/m2 LVOT Diam: 2.10 3.0+(-)1.3 cm 2D Systolic Function EF 4C: 71.10 >55% EF 2C: 64.30 >55% EF BiP: 67.20 >55% Mitral Valve MV VTI: 0.30 MV Pk Danis: 1.08 MV Mn Danis: 0.78 MV Pk Grad: 5.00 MV Mn Grad: 3.00 MV Pk E: 0.84 MV PK A: 1.18 MV Decel Time: 131.00 E/A: 0.70 E'Lateral: 7.40 E'Medial: 5.33 E/E' Med: 15.70 E/E' Lat: 11.30 PHT: 38.00 MVA PHT: 5.79 MVA Continuity: 3.30 Decel [place]: 6.38 Aortic Valve AoV Pk Danis: 1.43 AoV Mn Danis: 0.98 AoV VTI: 0.30 AoV Pk Grad: 8.00 Aov Mn Grad: 4.00 BRENDAN Cont.VTI: 3.32 LVOT LVOT Pk Danis: 1.26 LVOT Mn Danis: 0.92 LVOT VTI: 0.29 LVOT Pk Grad: 6.00 LVOT Mn Grad: 4.00 LVOT Diam: 2.10 LVOT Area: 3.46 Diastolic Function MV Pk E: 0.84 MV Pk A: 1.18 E/A: 0.70 E'Medial: 5.33 E/E' Med: 15.70 E' Laterial: 7.40 E/E' Lat: 11.30 Right Ventricle TAPSE (mm): 27.70 TVS' Danis: 14.10 Tricuspid Valve RA Press: 3.00 Great Vessels Aorta Sinus of Valsalva: 3.80 2.0-3.5 cm Ao Asc: 3.70 2.1-3.4 cm Updated in Other Vendor System with Status of Final Everett Lo MD electronically signed on 01/17/2024 2:17:30 PM with status of Final
== END ==
LOC: HO.CARD 12:57
PROVIDERS: PCP Physician Assistant; Visit Provider Internal Medicine Pulmonary Disease
DX: R06.09 Other forms of dyspnea (principal)
CPT/HCPCS: 71250; 93306

== ENCOUNTER → 2024-01-16 13:00 | Outpatient (BNV) | payer MEDICARE, SELFPAY | PROVIDERS: PCP Physician Assistant; Visit Provider Internal Medicine | DX: I35.8 Other nonrheumatic aortic valve disorders (principal); I42.2 Other hypertrophic cardiomyopathy | CPT/HCPCS: 93306 ==

== ENCOUNTER 2024-02-11 13:38 | Outpatient (AMB) | payer MEDICARE, SELFPAY ==
[2024-02-11 13:40] VITALS: BP 186/84; PULSE 106; O2SAT 96; BMI 26.6
--- NOTE | 2024-02-11 13:40 | MHC.OFFVIS ---
Intake Vital Signs 02/11/24 13:40 Height 5 ft 11 in Weight 190 lb 11.198 oz BMI 26.6 BP 186/84 H Blood Pressure Location Lt brachial Position Sitting Pulse 106 H Pulse Source Pulse Oximeter Pulse Oximetry (%) 96 Oxygen Delivery Method Nasal Cannula Intake Visit Reasons: Shortness of Breath Allergies No Known Allergies Allergy (Verified 02/11/24 13:43) HPI Shortness of Breath HPI Details 78-year-old gentleman, 40+ pack-year smoker, quit 2006 followed for very severe COPD supplemental oxygen dependent and pulmonary nodules. After the last office visit patient was started on Anoro as some improvement in his symptoms. He did completed his pulmonary function test that showed underlying very severe COPD. His CT chest demonstrated a right basilar 1 cm pulmonary nodule. [facility] Medical History (Updated 02/11/24 @ 14:19 by Arik Middleton MD) Cataracts, bilateral Surgical History History of cataract Social History (Updated 02/11/24 @ 13:45 by Nataliia Meraz CMA) Housing: House Alcohol intake: never Patient Tobacco Use Status: Former Tobacco user Quit Date: 2006 Tobacco use type: Cigarette e-Cigarette/Vaping Use: Never Used Second Hand Smoke Exposure: No service: Yes Current occupational status: retired Cognitive needs: No Hearing needs: No Vision needs: Yes Review of Systems Const Denies daytime sleepiness, Denies excessive sweating, Denies fatigue, Denies fever(s), Denies lethargy, Denies malaise, Denies night sweats, Denies snoring and Denies weight loss Eyes Denies blurry vision and Denies itchy eyes ENT Denies nasal congestion, Denies post nasal drip, Denies sinus pain, Denies sinus pressure and Denies other ( Thrush) Card Denies chest pain, Denies pedal edema, Denies dyspnea, Denies orthopnea and Denies paroxysmal nocturnal dyspnea Resp Denies cough, Denies hemoptysis, Denies excessive phlegm production, Denies dyspnea, Denies snoring and Denies wheezing GI Denies abdominal pain and Denies heartburn Musc Denies myalgias, Denies arthralgias and Denies joint swelling Skin/Breast Denies rash Neuro Denies memory loss and Denies seizure-like activity Psych Denies abnormal sleep pattern, Denies anxiety and Denies memory loss Endo Denies excessive sweating, Denies fatigue and Denies heat intolerance Ford/Lymph Denies easy bruising Aller/Immun Denies itchy eyes, Denies seasonal rhinorrhea and Denies wheezing Physical Exam Vital Signs: Last Vital Signs Pulse 106 H 02/11/24 13:40 BP 186/84 H 02/11/24 13:40 Pulse Ox 96 02/11/24 13:40 Oxygen Delivery Method Nasal Cannula 02/11/24 13:40 BMI result Body Mass Index 26.6 Const General: no acute distress and alert Nutritional Appearance: not obese Orientation/consciousness: Other orientation findings ( oriented) HEENT Head: Yes atraumatic Eyes General: appearance normal, both eyes and all related structures Sclerae: sclerae normal EOM: EOMs intact bilaterally Neck Neck: Yes supple Lymphatic: no lymphadenopathy noted Resp Effort & Inspection: normal respiratory effort and no use of accessory muscles Auscultation: clear to auscultation bilaterally Cardio Rate: regular rate Rhythm: regular rhythm Heart sounds: no gallops, no murmurs and no rubs Skin General skin exam: other ( warm) Extrem General: No clubbing, No cyanosis and No edema Assessment & Plan Assessment & Plan (1) COPD (chronic obstructive pulmonary disease): Code(s): J44.9 - Chronic obstructive pulmonary disease, unspecified Plan: Pulmonary function test reviewed underlying severe to very severe COPD. Reasonably well controlled on Anoro and albuterol MDI. Continue current regimen. (2) Supplemental oxygen dependent: Code(s): Z99.81 - Dependence on supplemental oxygen Plan: Supplemental oxygen evaluation/POC trial performed. Patient able to maintain normal oximetry on POC at setting 3-4. Updated order placed. (3) Pulmonary nodule 1 cm or greater in diameter: Code(s): R91.1 - Solitary pulmonary nodule Plan: Follow-up CT chest ordered in 4 months. Orders: Orders CT chest wo IV con 06/02/24 R91.1 - Solitary pulmonary nodule Coding Level of Care Code Est Pt Level 4 (48007) Diagnoses COPD (chronic obstructive pulmonary disease) J44.9 Supplemental oxygen dependent Z99.81 Pulmonary nodule 1 cm or greater in diameter R91.1
[2024-02-11 15:28] VITALS: PULSE 100; O2SAT 94
== END 2024-02-11 14:20 | disposition home or self-care (01) ==
PROVIDERS: PCP Physician Assistant; Visit Provider Internal Medicine Pulmonary Disease
DX: J44.9 Chronic obstructive pulmonary disease, unspecified (principal); Z99.81 Dependence on supplemental oxygen; R91.1 Solitary pulmonary nodule
CPT/HCPCS: 94618; 99214

== ENCOUNTER → 2024-02-11 13:38 | Outpatient (BNVA) | payer MEDICARE, SELFPAY | PROVIDERS: PCP Physician Assistant; Visit Provider Internal Medicine Pulmonary Disease | DX: J44.9 Chronic obstructive pulmonary disease, unspecified (principal); R91.1 Solitary pulmonary nodule; Z99.81 Dependence on supplemental oxygen | CPT/HCPCS: 94618; 99212 ==

== ENCOUNTER 2024-03-04 06:09 | Outpatient (REF) | payer MEDICARE, SELFPAY ==
[2024-03-04 11:17] LABS: Prostate Specific Antigen Scr 4.79 ng/mL (<0.05-4.0)
== END 2024-03-04 06:10 | disposition home or self-care (01) ==
LOC: HO.HMGCLDS 06:09
PROVIDERS: PCP Physician Assistant; Visit Provider Physician Assistant
DX: Z12.5 Encounter for screening for malignant neoplasm of prostate (principal)
CPT/HCPCS: 36415; 84153

== ENCOUNTER 2024-03-10 14:02 | Outpatient (AMB) | payer MEDICARE, SELFPAY ==
[2024-03-10 14:17] VITALS: BP 176/72; PULSE 115; O2SAT 88; BMI 26.5
--- NOTE | 2024-03-10 14:17 | MHC.PC.OV ---
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 Accompanied by: Self / Same As Patient Allergies No Known Allergies Allergy (Verified 03/10/24 14:37) Medication List - Last Reconciled 03/10/24 by Sky Fletcher PA-C albuterol sulfate 90 mcg/actuation 1 inh inhalation QID PRN 30 days Anoro Ellipta 62.5-25 mcg/actuation (umeclidinium-vilanterol) 1 inh inhalation DAILY 30 days NS blood sugar diagnostic (FreeStyle Lite Strips) As directed blood-glucose meter (FreeStyle Lite Meter kit) As directed lancets (FreeStyle Lancets) As directed metformin 500 mg PO BIDWMEAL 90 days Tobacco use date assessed: 12/11/23 Fall risk assessment: No Falls in past year Last assessed Fall Risk: 03/10/24 Dental Screening Dental Screen Date: 11/07/23 HPI f/u DMII/ HLD/ COPD HPI Details Patient is a 78-year-old male here today for follow-up visit.? Pmhx of type 2 diabetes, hyperlipidemia COPD: FOllowed by [facility]. Continues on a portable supplemental oxygen via nasal cannula 2-3 L per minute. He has been started on maintenance inhaler ANORO. Chest CT- -> 1 cm right lower lobe nodular opacity, lung lesion versus nodular scarring/atelectasis. Found to low oxygen exertion, chest x-ray showing-->Diffuse peribronchial vascular opacities may reflect edema or atypical infection. Elevated blood pressure readings:? Blood pressures in office today elevated. Home readings are 110- 120s systolic .? He reports he has always had elevated blood pressures at doctor visits.? Likely has white coat hypertension.? Hold off on blood pressure medication at this time. .. Type 2 diabetes :? Today's A1c is elevated at 6.8. Has been working on diabetic diet. At last visit we increased his metformin to b.i.d. dosing. PLAN: Will continue metformin 500 BID .. .. Hyperlipidemia: Lipid panel showing borderline high total cholesterol and elevated LDL at 132. He does understand his cardiovascular risk being a diabetic though continues to decline starting statin therapy. .. Elevated PSA: He has started saw palmetto for his prostate. Advised on urology evaluation patient declines at this time. He does report at times having weak urinary stream and nocturia. Has been trying Saw palmetto. Most recent PSA decreased. Will continue to follow PSA HLD: He does have LDL 135 and does understand this is elevated cardiovascular risk.? He is not interested in statin therapy. Laboratory Tests 10/23/22 03/31/23 07/28/23 06:26 14:07 06:28 Hgb A1c (Clinic) 6.8 H Cholesterol LDL Cholesterol, C alc 138 PSA Screen 5.83 H TSH 07/28/23 07/31/23 11/07/23 06:38 13:36 13:41 Hgb A1c (Clinic) 7.4 H 7.5 H Cholesterol 226 H LDL Cholesterol, C alc 132 H PSA Screen TSH 1.90 03/04/24 06:23 Hgb A1c (Clinic) Cholesterol LDL Cholesterol, C alc PSA Screen 4.79 H TSH [facility] Medical History (Updated 03/10/24 @ 14:47 by Sky Fletcher PA-C) Cataracts, bilateral Surgical History History of cataract Social History Housing: House Alcohol intake: never Patient Tobacco Use Status: Former Tobacco user Quit Date: 2006 Tobacco use type: Cigarette e-Cigarette/Vaping Use: Never Used Second Hand Smoke Exposure: No service: Yes Current occupational status: retired Cognitive needs: No Hearing needs: No Vision needs: Yes Questionnaire Thrive Questionnaire Date Thrive assessed: 11/07/23 MARIA DEL CARMEN-7 AMB Questionnaire MARIA DEL CARMEN-7 Date MARIA DEL CARMEN - 7 assessed: 11/07/23 Source: Developed by Drs. Lucio Estrada, Kera Frederick, Alvino Gilliam and colleagues, with an educational julian from [employer]. Review of Systems Const Denies headache(s) Eyes Denies loss of vision ENT Denies vertigo, Denies dizziness, Denies headache(s) and Denies sore throat Card Denies chest pain, Denies leg edema, Denies lightheadedness, Denies dyspnea and Reports dyspnea on exertion Resp Reports cough, Denies hemoptysis, Denies dyspnea, Reports dyspnea on exertion and Denies wheezing GI Denies abdominal pain, Denies melena, Denies constipation, Denies diarrhea and Denies vomiting Denies dysuria, Denies urinary frequency and Denies urinary urgency Musc Denies arthralgias, Denies joint swelling, Denies numbness and Denies tingling Neuro Denies Abnormal speech present, Denies behavioral changes, Denies vertigo, Denies dizziness, Denies headache(s), Denies loss of vision, Denies memory loss, Denies numbness and Denies tingling Psych Denies anxiety, Denies behavioral changes, Denies depression, Denies memory loss and Denies panic attacks Ford/Lymph Denies easy bleeding and Denies easy bruising Aller/Immun Denies wheezing Physical exam (Primary Care) Vital Signs: Last Vital Signs Pulse 115 H 03/10/24 14:17 BP 176/72 H 03/10/24 14:17 Pulse Ox 95 03/10/24 14:42 Oxygen Delivery Method Room Air 03/10/24 14:17 BMI result Body Mass Index 26.5 Tobacco/Smoking Status: Tobacco use Status Tobacco use date assessed 12/11/23 03/10/24 14:17 Patient Tobacco Use Status Former Tobacco user 03/10/24 14:17 Tobacco use type Cigarette 03/10/24 14:17 e-Cigarette/Vaping Use Never Used 03/10/24 14:17 Thrive Assessment: Date of Thrive Assessment Date Thrive assessed 11/07/23 03/10/24 14:17 Const General: healthy appearing, no acute distress, alert and awake Nutritional Appearance: well nourished Orientation/consciousness: oriented to person, oriented to place and oriented to time HENMT Ears: TM's normal bilaterally General nose exam: Normal nasal mucous membranes and turbinates present Eyes Conjunctivae: conjunctivae normal Sclerae: sclerae normal Pupils: Equal, round and reactive pupils present Neck Neck: Yes no lymphadenopathy and Yes no JVD Thyroid: Thyroid normal Carotids: no bruits Resp Effort & Inspection: normal respiratory effort and not tachypneic Auscultation: no crackles, no rales, no rhonchi and no wheezes Cardio Rate: regular rate Rhythm: regular rhythm Heart sounds: no murmurs and normal S1 and S2 GI Palpation (GI): Soft to palpation, nontender, no hepatomegaly and no splenomegaly Auscultation: normal bowel sounds Skin General skin exam: no rashes or lesions noted and dry skin Neuro General: oriented to person, oriented to place and oriented to time Cranial nerves: Yes Equal, round and reactive pupils present Speech: No Abnormal speech present Gait exam (Neuro): Normal gait present Motor exam (neuro): no tremor noted Extrem Right upper extremity: full ROM Left upper extremity: full ROM Right lower extremity: full ROM; no edema Left lower extremity: full ROM; no edema Psych Mental Status: mental status grossly normal Speech and movement: Normal speech and movement present Affect: normal affect Attitude: cooperative Thought process: Normal thought process present Results AMB Hemoglobin A1c AMB Hemoglobin A1c 6.8 % Last Edit by AKUA Gallardo on 03/10/24 14:42 Results Reviewed Results Reviewed: Laboratory Last Values Hgb A1c (Clinic) 6.8 % (4.0-6.0) H 03/10/24 14:06 Assessment and Plan Assessment & Plan (1) Type 2 diabetes mellitus with hyperglycemia: Code(s): E11.65 - Type 2 diabetes mellitus with hyperglycemia Qualifiers: Diabetes mellitus rodent exterminator insulin use: without rodent exterminator use Qualified Code(s): E11.65 - Type 2 diabetes mellitus with hyperglycemia Plan: Patient's type 2 diabetes now well controlled with A1c is 6.8.. His metformin has been increased to 1000 mg daily.. Decrease the amount of carbohydrate intake, pasta, bread, rice and potatoes are all sugar and that is aside from all the sweet stuff, remember that fruits are good but they are Sweet also. Hemoglobin A1c goal of less than 7.0 . (2) HTN (hypertension): Code(s): I10 - Essential (primary) hypertension Qualifiers: Hypertension type: primary hypertension Qualified Code(s): I10 - Essential (primary) hypertension Plan: Blood pressure remains elevated, continues to decline offers to start blood pressure medication. He reports that home blood pressures are 120s to 130 systolic. He denies any headache, chest discomforts or dizziness.. Goal blood pressures to remain below 140/90 (3) HLD (hyperlipidemia): Code(s): E78.5 - Hyperlipidemia, unspecified Qualifiers: Hyperlipidemia type: mixed hyperlipidemia Qualified Code(s): E78.2 - Mixed hyperlipidemia Plan: Patient's lipid panel elevated with LDL above goal of 100. Still declining starting statin therapy though urgently advised to do so. [id number] vitamins he will work on dietary modifications. Avoid fried foods, chicken skin, eggs, butter margarine, pastries and meat. Be it pork or beef they have a lot of cholesterol LDL goal of less than 100 and triglyceride of less than 150. Patient not on any medication and declines (4) COPD (chronic obstructive pulmonary disease): Code(s): J44.9 - Chronic obstructive pulmonary disease, unspecified Qualifiers: COPD type: chronic bronchitis Chronic bronchitis type: simple Qualified Code(s): J41.0 - Simple chronic bronchitis Plan: Patient continues to follow [facility]. Now has supplemental oxygen at 2-3 liters/minute. Does desat on exertion. Also now on maintenance inhaler ANORO. Has found to be very expensive and is concerned about jones. Will look into [place] benefits to help him pay for medication. Orders: Orders Lipid Panel 03/10/24 E78.2 - Mixed hyperlipidemia Microalbumin, Random (w Creat) 03/10/24 - Type 2 diabetes mellitus with hyperglycemia AMB Hemoglobin A1c 03/10/24 - Type 2 diabetes mellitus with hyperglycemia Comprehensive [place]. Panel Fast 03/10/24 - Type 2 diabetes mellitus with hyperglycemia Complete Blood Count no Diff 03/10/24 - Type 2 diabetes mellitus with hyperglycemia Patient Instructions: Goal: A1c to remain below 7.0 Barriers: Adherence to healthy eating habits and physical activity Coding Level of Care Code Est Pt Level 4 (91647) Diagnoses Type 2 diabetes mellitus with hyperglycemia, without long-term current use of insulin Diabetes mellitus rodent exterminator insulin use: without jail use Primary hypertension I10 Hypertension type: primary hypertension Mixed hyperlipidemia E78.2 Hyperlipidemia type: mixed hyperlipidemia Simple chronic bronchitis J41.0 COPD type: chronic bronchitis Chronic bronchitis type: simple
[2024-03-10 14:42] VITALS: O2SAT 95
== END 2024-03-10 15:02 | disposition home or self-care (01) ==
PROVIDERS: PCP Physician Assistant; Visit Provider Physician Assistant
DX: E11.65 Type 2 diabetes mellitus with hyperglycemia (principal)
CPT/HCPCS: 83036; 99214

== ENCOUNTER 2024-06-29 13:09 | Outpatient (AMB) | payer MEDICARE, SELFPAY ==
[2024-06-29 13:10] VITALS: BP 160/100; PULSE 104; O2SAT 92; BMI 27.7
--- NOTE | 2024-06-29 13:10 | MHC.OFFVIS ---
Vital Signs 06/29/24 13:10 Height 5 ft 11 in Weight 198 lb 6.656 oz BMI 27.7 BP 160/100 H Blood Pressure Location Rt brachial Position Sitting Pulse 104 H Pulse Source Doppler Pulse Oximetry (%) 92 Oxygen Delivery Method Nasal Cannula Intake Visit Reasons: Shortness of breath Allergies No Known Allergies Allergy (Verified 03/10/24 14:37) HPI HPI Shortness of breath: Details: 78-year-old gentleman, 40+ pack-year smoker, quit 2006 followed for very severe COPD supplemental oxygen dependent utilizing portable oxygen concentrator and pulmonary nodules. After the last office visit patient tried Anoro, however he did not think it provide significant benefit and he has not been using it. He has been relying on albuterol MDI using it several times day. He denies recent acute exacerbations. Patient has not completed his follow-up CT scan. [facility] Medical History (Updated 03/10/24 @ 14:47 by Sky Fletcher PA-C) Cataracts, bilateral Surgical History History of cataract Social History Housing: House Alcohol intake: never Patient Tobacco Use Status: Former Tobacco user Tobacco use type: Cigarette e-Cigarette/Vaping Use: Never Used Second Hand Smoke Exposure: No service: Yes Current occupational status: retired Cognitive needs: No Hearing needs: No Vision needs: Yes Review of Systems Const Denies daytime sleepiness, Denies excessive sweating, Denies fatigue, Denies fever(s), Denies lethargy, Denies malaise, Denies night sweats, Denies snoring and Denies weight loss Eyes Denies blurry vision and Denies itchy eyes ENT Denies nasal congestion, Denies post nasal drip, Denies sinus pain, Denies sinus pressure and Denies other ( Thrush) Card Denies chest pain, Denies pedal edema, Denies dyspnea, Denies orthopnea and Denies paroxysmal nocturnal dyspnea Resp Denies cough, Denies hemoptysis, Denies excessive phlegm production, Denies dyspnea, Denies snoring and Denies wheezing GI Denies abdominal pain and Denies heartburn Musc Denies myalgias, Denies arthralgias and Denies joint swelling Skin/Breast Denies rash Neuro Denies memory loss and Denies seizure-like activity Psych Denies abnormal sleep pattern, Denies anxiety and Denies memory loss Endo Denies excessive sweating, Denies fatigue and Denies heat intolerance Ford/Lymph Denies easy bruising Aller/Immun Denies itchy eyes, Denies seasonal rhinorrhea and Denies wheezing Physical Exam Vital Signs: Last Vital Signs Pulse 104 H 06/29/24 13:10 BP 160/100 H 06/29/24 13:10 Pulse Ox 92 06/29/24 13:10 Oxygen Delivery Method Nasal Cannula 06/29/24 13:10 BMI result Body Mass Index 27.7 Const General: no acute distress and alert Nutritional Appearance: not obese Orientation/consciousness: Other orientation findings ( oriented) HEENT Head: Yes atraumatic Eyes General: appearance normal, both eyes and all related structures Sclerae: sclerae normal EOM: EOMs intact bilaterally Neck Neck: Yes supple Lymphatic: no lymphadenopathy noted Resp Effort & Inspection: normal respiratory effort and no use of accessory muscles Auscultation: clear to auscultation bilaterally Cardio Rate: regular rate Rhythm: regular rhythm Heart sounds: no gallops, no murmurs and no rubs Skin General skin exam: other ( warm) Extrem General: No clubbing, No cyanosis and No edema Assessment & Plan Assessment & Plan (1) COPD (chronic obstructive pulmonary disease): Code(s): J44.9 - Chronic obstructive pulmonary disease, unspecified Category: Medical Qualifiers: COPD type: chronic bronchitis Chronic bronchitis type: simple Qualified Code(s): J41.0 - Simple chronic bronchitis Plan: Reasonable control on albuterol MDI. Continue current regimen. Patient does not think Anoro provides any symptomatic benefit. (2) Pulmonary nodule 1 cm or greater in diameter: Code(s): R91.1 - Solitary pulmonary nodule Category: Medical Plan: Follow-up CT chest is pending. (3) Supplemental oxygen dependent: Code(s): Z99.81 - Dependence on supplemental oxygen Category: Medical Plan: Patient has been utilizing portable oxygen concentrator at setting 2-4. Continue supplemental oxygen to maintain O2 sat of 88-92%. Coding Level of Care Code Est Pt Level 4 (61931) Diagnoses Simple chronic bronchitis J41.0 COPD type: chronic bronchitis Chronic bronchitis type: simple Pulmonary nodule 1 cm or greater in diameter R91.1 Supplemental oxygen dependent Z99.81
== END 2024-06-29 13:38 | disposition home or self-care (01) ==
PROVIDERS: PCP Physician Assistant; Visit Provider Internal Medicine Pulmonary Disease
DX: J41.0 Simple chronic bronchitis (principal); R91.1 Solitary pulmonary nodule; Z99.81 Dependence on supplemental oxygen
CPT/HCPCS: 99214

== ENCOUNTER → 2024-06-29 13:09 | Outpatient (BNVA) | payer MEDICARE, SELFPAY | PROVIDERS: PCP Physician Assistant; Visit Provider Internal Medicine Pulmonary Disease | DX: J41.0 Simple chronic bronchitis (principal); R91.1 Solitary pulmonary nodule; Z99.81 Dependence on supplemental oxygen | CPT/HCPCS: 99212 ==

== ENCOUNTER 2024-07-23 14:51 | Outpatient (REF) | payer MEDICARE, SELFPAY ==
--- NOTE | ~2024-07-23 | CT_ITS ---
EXAMINATION: CT CHEST WITHOUT CONTRAST CLINICAL INFORMATION: Solitary pulmonary nodule COMPARISON: CT chest 01/16/2024: 1.1 cm nodular nodular opacity associated with atelectasis/tethering to the pleura, 5:537, 7:80, 6:66 . TECHNIQUE: Multidetector volumetric CT imaging of the chest was done. Axial MIP volume rendering provided. Sagittal and coronal reformatted images were obtained. This CT examination was performed using dose optimization techniques as appropriate, variously including the following: *Automated exposure control *Adjustment of mA and/or kV according to patient size (this includes techniques or standardized protocols for targeted exams where dose is matched to indication/reason for exam; i.e. extremities or head) *Use of iterative reconstruction technique DLP: 190 mGy-cm FINDINGS: LUNGS: There has been no interval change in the previously seen nodular density with associated atelectasis at the right lung base (5:600-616). In the right upper lobe, there is an unchanged nodular density seen measuring about 5 mm (5:131 compare prior 5:81). No new, increasing sized or suspicious nodule is seen. Again seen is underlying marked emphysema with mild bronchial thickening without bronchiectasis. MEDIASTINUM: The mediastinum is normal. CORONARY ARTERY CALCIFICATION: Moderate PLEURA: Some calcified pleural plaque is seen at the right lung base medially, unchanged from prior. There is no pleural effusion. No pleural mass or thickening. AXILLA/CHEST WALL: No lymphadenopathy. Bilateral symmetric gynecomastia. UPPER ABDOMEN: Unremarkable. OSSEOUS STRUCTURES: Unremarkable. CT/CT chest wo IV con IMPRESSION: 1. No interval change in the previously seen nodular density with associated atelectasis at the right lung base. 2. Stable 5 mm right upper lobe nodule. 3. Marked emphysema. 4. Calcified pleural plaque at the right lung base. 5. Bilateral symmetric gynecomastia. Fleischner guidelines were followed. Electronically signed by: Tanner Wren MD 09/20/2024 01:59 PM EST
== END 2024-07-23 14:52 | disposition home or self-care (01) ==
LOC: HO.CT 14:51
PROVIDERS: PCP Physician Assistant; Visit Provider Internal Medicine Pulmonary Disease
DX: R91.1 Solitary pulmonary nodule (principal)
CPT/HCPCS: 71250

== ENCOUNTER 2024-08-31 06:58 | Outpatient (REF) | payer MEDICARE, SELFPAY ==
[2024-08-31 10:20] LABS: Appearance Urine Clear; Color Urine Yellow; Glucose Urine UA Negative (Negative); Leukocyte Esterase Urine Negative (Negative); Nitrite Urine Negative (Negative); PH 5.5 (5.0-9.0); Specific Gravity - Urine 1.015 (1.005-1.025); Urine Blood Negative (Negative); Urine Ketones Negative (Negative); Urine Protein Negative (Neg-Trace)
== END 2024-08-31 06:59 | disposition home or self-care (01) ==
LOC: HO.HMGCLDS 06:58
PROVIDERS: PCP Physician Assistant; Visit Provider Physician Assistant
DX: R30.0 Dysuria (principal)
CPT/HCPCS: 81003

== ENCOUNTER 2024-09-02 14:20 | Outpatient (AMB) | payer MEDICARE, SELFPAY ==
--- NOTE | 2024-09-02 14:29 | A.OFFPC_ITS ---
Vital Signs 09/02/24 14:39 09/02/24 15:00 Height 5 ft 11 in Weight 192 lb 4 oz BMI 26.8 BP 186/92 H 160/90 H Blood Pressure Location Lt brachial Position Sitting Pulse 114 H Pulse Source Pulse Oximeter Pulse Oximetry (%) 93 Oxygen Delivery Method Nasal Cannula Oxygen Flow Rate 2 Intake Visit Reasons: f/u DMII Hris Administrator Required: No Accompanied by: Self / Same As Patient Allergies No Known Allergies Allergy (Verified 09/02/24 14:40) Medication List - Last Reconciled 09/02/24 by Sky Fletcher PA-C albuterol sulfate 90 mcg/actuation 1 inh inhalation QID PRN 30 days Anoro Ellipta 62.5-25 mcg/actuation (umeclidinium-vilanterol) 1 inh inhalation DAILY 30 days NS blood sugar diagnostic (FreeStyle Lite Strips) As directed blood-glucose meter (FreeStyle Lite Meter kit) As directed lancets (FreeStyle Lancets) As directed metformin 500 mg PO BIDWMEAL 90 days Tobacco use date assessed: 12/11/23 Fall risk assessment: No Falls in past year Last assessed Fall Risk: 09/02/24 Dental Screening Dental Screen Date: 11/07/23 HPI f/u DMII HPI Details Patient is a 78-year-old male here today for follow-up visit.? Pmhx of type 2 diabetes, hyperlipidemia COPD: FOllowed by [facility]. Continues on a portable supplemental oxygen via nasal cannula 2-3 L per minute. He has been started on maintenance inhaler ANORO. Chest CT- -> 1 cm right lower lobe nodular opacity, lung lesion versus nodular scarring/atelectasis. Found to low oxygen exertion, chest x-ray showing-->Diffuse peribronchial vascular opacities may reflect edema or atypical infection. Recently has been having episodes of spacing out and some lethargy. He was to overnight pulse oximetry tested though has never been mail to him. Will reach out to pulmonology Elevated blood pressure readings:? Blood pressures in office today elevated. Home readings are 110- 120s systolic .? He reports he has always had elevated blood pressures at doctor visits.? Likely has white coat hypertension.? Hold off on blood pressure medication at this time. .. Type 2 diabetes :? Today's A1c is elevated at 6.4 from 6.8. Has been working on diabetic diet. PLAN: Will continue metformin 500 BID .. .. Hyperlipidemia: Lipid panel showing borderline high total cholesterol and elevated LDL at 132. He does understand his cardiovascular risk being a diabetic though continues to decline starting statin therapy. .. Elevated PSA: He has started saw palmetto for his prostate. Advised on urology evaluation patient declines at this time. He does report at times having weak urinary stream and nocturia. Has been trying Saw palmetto. Most recent PSA decreased. Will continue to follow [facility] Medical History Cataracts, bilateral Surgical History History of cataract Social History Housing: House Alcohol intake: never Patient Tobacco Use Status: Former Tobacco user Tobacco use type: Cigarette e-Cigarette/Vaping Use: Never Used Second Hand Smoke Exposure: No service: Yes Current occupational status: retired Cognitive needs: No Hearing needs: No Vision needs: Yes Questionnaire PHQ-9 Over the last 2 weeks, how often have you been bothered by any of the following problems? 1. Little interest or pleasure in doing things: not at all 2. Feeling down, depressed, or hopeless: not at all 3. Trouble falling or staying asleep, or sleeping too much: not at all 4. Feeling tired or having little energy: not at all 5. Poor appetite or overeating: not at all 6. Feeling bad about yourself - or that you are a failure or have let yourself or your family down: not at all 7. Trouble concentrating on things, such as reading the newspaper or watching television: not at all 8. Moving or speaking so slowly that other people could have noticed. Or the opposite - being so fidgety or restless that you have been moving around a lot more than usual: not at all 9. Thoughts that you would be better off or of hurting yourself in some way: not at all Total score: 0 Depression Screening Interpretation: Negative Depression Screening Done: Yes 21177 - PHQ-9 Billing: Yes Source: Developed by Drs. Lucio LKera Mckeon Kurt Kroenke and colleagues, with an educational julian from [employer]. Thrive Questionnaire Date Thrive assessed: 09/02/24 I am a: Patient What is your living situation today?: I have a steady place to live Within the past 12 months, did the food you bought not last and you didn't have the money to get more?: Never true Within the past 12 months, did you worry whether your food would run out before you got money to buy more?: Never true Do you have trouble paying for medicines?: No Do you have trouble getting transportation to medical appointments?: No Do you have trouble paying your heating and electricity bill?: No Do you have trouble taking care of your child, family member or friend?: No Do you have trouble with day-to-day activities such as bathing, preparing meals, shopping, managing finances, etc.?: No Are you currently unemployed and looking for a job?: No Are you interested in more education?: No Please select the resources that you would like help with: None Currently or been in a relationship where the following occur: No concerns reported THRIVE Score: 0 AUDIT C Alcohol Use Questionnaire (AUDIT-C) 1. How often do you have a drink containing alcohol?: Never 3. How often do you have six or more drinks on one occasion?: Never Total Score: 0 MARIA DEL CARMEN-7 AMB Questionnaire MARIA DEL CARMEN-7 Date MARIA DEL CARMEN - 7 assessed: 09/02/24 Feeling nervous, anxious, or on edge: 0 = Not at all Not being able to stop or control worryin = Not at all Worrying too much about different things: 0 = Not at all Trouble relaxin = Not at all Being so restless that it is hard to sit still: 0 = Not at all Becoming easily annoyed or irritable: 0 = Not at all Feeling afraid as if something awful might happen: 0 = Not at all Total MARIA DEL CARMEN-7 score (0-4 normal; 5-9 mild; 10-14 moderate; 15-21 severe): 0 Source: Developed by Drs. Lucio Estrada, Alvino Luis and colleagues, with an educational julian from [employer]. MARIA DEL CARMEN-7 Assessment Billing MARIA DEL CARMEN-7 Assessment Tool: MARIA DEL CARMEN-7 Assessment 50564 Review of Systems Const Denies headache(s) Eyes Denies loss of vision ENT Denies vertigo, Denies dizziness, Denies headache(s) and Denies sore throat Card Denies chest pain, Denies leg edema, Denies lightheadedness and Reports dyspnea on exertion Resp Denies cough, Denies hemoptysis, Reports dyspnea on exertion and Denies wheezing GI Denies abdominal pain, Denies melena, Denies constipation, Denies diarrhea and Denies vomiting Denies dysuria, Denies urinary frequency and Denies urinary urgency Musc Denies arthralgias, Denies joint swelling, Denies numbness and Denies tingling Neuro Denies Abnormal speech present, Denies behavioral changes, Denies vertigo, Denies dizziness, Denies headache(s), Denies loss of vision, Denies memory loss, Denies numbness and Denies tingling Psych Denies anxiety, Denies behavioral changes, Denies depression, Denies memory loss and Denies panic attacks Ford/Lymph Denies easy bleeding and Denies easy bruising Aller/Immun Denies wheezing Physical exam (Primary Care) Vital Signs: Last Vital Signs Pulse 114 H 09/02/24 14:39 BP 160/90 H 09/02/24 15:00 Pulse Ox 93 09/02/24 14:39 Oxygen Delivery Method Nasal Cannula 09/02/24 14:39 Oxygen Flow Rate 2 09/02/24 14:39 BMI result Body Mass Index 26.8 Tobacco/Smoking Status: Tobacco use Status Tobacco use date assessed 12/11/23 09/02/24 14:29 Patient Tobacco Use Status Former Tobacco user 09/02/24 14:29 Tobacco use type Cigarette 09/02/24 14:29 e-Cigarette/Vaping Use Never Used 09/02/24 14:29 PHQ-9: PHQ-9 Score PHQ-9: Total score 0 09/02/24 15:27 Depression Screening Interpretation: Negative Thrive Assessment: Date of Thrive Assessment Date Thrive assessed 09/02/24 09/02/24 14:31 Currently or been in a relationship where the following occur: No concerns reported Const General: healthy appearing, no acute distress, alert and awake Nutritional Appearance: well nourished Orientation/consciousness: oriented to person, oriented to place and oriented to time HENMT Ears: TM's normal bilaterally General nose exam: Normal nasal mucous membranes and turbinates present Eyes Conjunctivae: conjunctivae normal Sclerae: sclerae normal Pupils: Equal, round and reactive pupils present Neck Neck: Yes no lymphadenopathy and Yes no JVD Thyroid: Thyroid normal Carotids: no bruits Resp Effort & Inspection: normal respiratory effort and not tachypneic Auscultation: no crackles, no rales, no rhonchi and no wheezes Cardio Rate: regular rate Rhythm: regular rhythm Heart sounds: no murmurs and normal S1 and S2 GI Palpation (GI): Soft to palpation, nontender, no hepatomegaly and no splenomegaly Auscultation: normal bowel sounds Skin General skin exam: no rashes or lesions noted and dry skin Neuro General: oriented to person, oriented to place and oriented to time Cranial nerves: Yes Equal, round and reactive pupils present Speech: No Abnormal speech present Gait exam (Neuro): Normal gait present Motor exam (neuro): no tremor noted Extrem Right upper extremity: full ROM Left upper extremity: full ROM Right lower extremity: full ROM; no edema Left lower extremity: full ROM; no edema Psych Mental Status: mental status grossly normal Speech and movement: Normal speech and movement present Affect: normal affect Attitude: cooperative Thought process: Normal thought process present Office Procedures Flu Questionnaire Does the patient have a severe egg allergy?: No Results AMB Hemoglobin A1c AMB Hemoglobin A1c 6.4 % Last Edit by AKUA Gallardo on 09/02/24 14:55 Immunizations Fluarix Triv [id number] (PF) 45 mcg (15 mcg x 3)/0.5 mL IM syringe Performing Provider: Sky Fletcher PA-C [facility] [place] [facility] Documented (not given) by: AKUA Gallardo on 09/02/24 14:39 Reason Not Given: Patient Refused Results Reviewed Results Reviewed: Laboratory Last Values Hgb A1c (Clinic) 6.4 % (4.0-6.0) H 09/02/24 14:45 Coding Level of Care Code Est Pt Level 4 (91945) Diagnoses Type 2 diabetes mellitus with hyperglycemia, without long-term current use of insulin E11.65 Diabetes mellitus senior living insulin use: without senior software engineer analytics use Primary hypertension I10 Hypertension type: primary hypertension Mixed hyperlipidemia E78.2 Hyperlipidemia type: mixed hyperlipidemia Simple chronic bronchitis J41.0 COPD type: chronic bronchitis Chronic bronchitis type: simple Additional Codes MARIA DEL CARMEN-7 Assessment Billing - MARIA DEL CARMEN-7 Assessment Tool: MARIA DEL CARMEN-7 Assessment 79208 ([id number]) PHQ-9 - 03899 - PHQ-9 Billing: Yes ([id number]) Assessment & Plan Assessment & Plan (1) Type 2 diabetes mellitus with hyperglycemia: Code(s): E11.65 - Type 2 diabetes mellitus with hyperglycemia Category: Medical Qualifiers: Diabetes mellitus senior software engineer analytics insulin use: without senior living use Qualifi ed Code(s): E11.65 - Type 2 diabetes mellitus with hyperglycemia Plan: Patient's type 2 diabetes well controlled with current dose of metformin. He has been trying to stay consistent with a diabetic diet. Goal A1c is to remain below 7.0 (2) HTN (hypertension): Code(s): I10 - Essential (primary) hypertension Category: Medical Qualifiers: Hypertension type: primary hypertension Qualified Code(s): I10 - Essential (primary) hypertension Plan: Patient's blood pressure elevated today in office. He reports that home blood pressures are 1 teens to 120 systolic. He believes he has a white coat hypertension. Goal blood pressures to remain below 140/90 consistently at home. (3) HLD (hyperlipidemia): Code(s): E78.5 - Hyperlipidemia, unspecified Category: Medical Qualifiers: Hyperlipidemia type: mixed hyperlipidemia Qualified Code(s): E78.2 - Mixed hyperlipidemia Plan: Patient's most recent lipid panel showing elevated total cholesterol and LDL. He is not interested in starting cholesterol medication. Will continue to work on lifestyle and dietary modifications. Goal LDL is to be below 100. (4) COPD (chronic obstructive pulmonary disease): Code(s): J44.9 - Chronic obstructive pulmonary disease, unspecified Category: Medical Qualifiers: COPD type: chronic bronchitis Chronic bronchitis type: simple Qualified Code(s): J41.0 - Simple chronic bronchitis Plan: Patient continues to follow [facility]. He continues on Supplemental oxygen particularly on exertion. He was to have overnight pulse oximetry though has not been mail to him. Will reach out to pulmonology to get this reordered. Of note he has been having episodes of spacing out and feeling somewhat lethargic. He does desat fairly quickly on exertion. Labs including urine has been normal. Sugars have been stable. He believes Orders: Orders Prostate Specific Antigen Scr 09/02/24 R97.20 - Elevated prostate specific antigen [PSA], Z12.5 - Encounter for screening for malignant neoplasm of prostate Lipid Panel 09/02/24 E78.2 - Mixed hyperlipidemia Influenza [id number] Immunization 09/02/24 Z23 - Encounter for immunization Complete Blood Count no Diff 09/02/24 E11.65 - Type 2 diabetes mellitus with hyperglycemia Comprehensive [place]. Panel Fast 09/02/24 E11.65 - Type 2 diabetes mellitus with hyperglycemia AMB Hemoglobin A1c 09/02/24 E11.65 - Type 2 diabetes mellitus with hyperglycemia
[2024-09-02 14:39] VITALS: BP 186/92; PULSE 114; O2SAT 93; BMI 26.8
[2024-09-02 15:00] VITALS: BP 160/90
== END 2024-09-02 15:19 | disposition home or self-care (01) ==
LOC: HO.HMCH 14:21
PROVIDERS: PCP Physician Assistant; Visit Provider Physician Assistant
DX: E11.65 Type 2 diabetes mellitus with hyperglycemia (principal); I10 Essential (primary) hypertension; E78.2 Mixed hyperlipidemia; J41.0 Simple chronic bronchitis

== ENCOUNTER → 2024-09-02 14:20 | Outpatient (BNVA) | payer MEDICARE, SELFPAY | PROVIDERS: PCP Physician Assistant; Visit Provider Physician Assistant | DX: E11.65 Type 2 diabetes mellitus with hyperglycemia (principal); I10 Essential (primary) hypertension; E78.2 Mixed hyperlipidemia; J41.0 Simple chronic bronchitis; Z28.21 Immunization not carried out because of patient refusal | CPT/HCPCS: 83036; 90471; 96127; 99212 ==

== ENCOUNTER 2024-09-08 06:49 | Outpatient (REF) | payer MEDICARE, SELFPAY ==
[2024-09-08 10:48] LABS: Hematocrit 46.4 % (42.0-52.0); Hemoglobin 15.5 g/dl (14.0-18.0); Mean Corpuscular HGB Conc 33.4 g/dl (31.0-36.0); Mean Corpuscular Hemoglobin 31.2 pg (27.0-33.0); Mean Corpuscular Volume 93.4 fL (80.0-98.0); Mean Platelet Volume 9.2 fL (9.4-12.4); Platelet Count 243 X10*3/uL (160-400); Red Blood Count 4.97 X10*6/uL (4.60-5.80); Red Cell Distribution Width 12.5 % (11.0-16.0)
[2024-09-08 11:18] LABS: Prostate Specific Antigen Scr 6.44 ng/mL (<0.05-4.0)
[2024-09-08 11:25] LABS: Alanine Aminotransferase 20 U/L (0-40); Alkaline Phosphatase 76 U/L (39-117); Anion Gap 12 (12-20); Aspartate Amino Transferase 26 U/L (5-37); Bilirubin Total 0.7 mg/dL (0.0-1.0); Blood Urea Nitrogen 10 mg/dL (9-16); Calcium 9.2 mg/dL (8.4-10.2); Carbon Dioxide 34 mmol/L (22-29); Chloride 102 mmol/L (96-108); Cholesterol 235 mg/dL (<200); Estimated Glomerular Filt Rate > 60; Glucose Fasting 124 mg/dL (60-99); HDL Cholesterol 58 mg/dL (>40); LDL Cholesterol Calculated 132 mg/dL (<100); Potassium 4.1 mmol/L (3.3-5.1); Sodium 144 mmol/L (135-145); Total Protein 6.9 g/dL (6.5-8.0); Triglycerides 225 mg/dL (<150)
== END 2024-09-08 06:50 | disposition home or self-care (01) ==
LOC: HO.HMGCLDS 06:49
PROVIDERS: PCP Physician Assistant; Visit Provider Physician Assistant
DX: E11.65 Type 2 diabetes mellitus with hyperglycemia (principal); E78.2 Mixed hyperlipidemia; R97.20 Elevated prostate specific antigen [PSA]; Z12.5 Encounter for screening for malignant neoplasm of prostate
CPT/HCPCS: 36415; 80053; 80061; 84153; 85027

== ENCOUNTER 2024-09-20 12:54 | Outpatient (AMB) | payer MEDICARE, SELFPAY ==
--- NOTE | 2024-09-20 13:03 | MHC.OFFVIS ---
Vital Signs 09/20/24 13:04 Height 5 ft 11 in Weight 191 lb BMI 26.6 BP 170/82 H Blood Pressure Location Lt brachial Position Sitting Pulse 112 H Pulse Source Doppler Pulse Oximetry (%) 94 Oxygen Delivery Method Nasal Cannula Oxygen Flow Rate 2 Intake Visit Reasons: Shortness of breath Allergies No Known Allergies Allergy (Verified 09/02/24 14:40) HPI HPI Shortness of breath: Details: 78-year-old gentleman, 40+ pack-year smoker, quit 2006 followed for very severe COPD supplemental oxygen dependent utilizing portable oxygen concentrator and pulmonary nodules. After the last office visit patient tried Anoro, however he did not think it provide significant benefit and he has not been using it. He has been relying on albuterol MDI using it several times day. He denies recent acute exacerbations. Patient has completed his follow-up CT chest, however the results are not available for this visit. [facility] Medical History Cataracts, bilateral Surgical History History of cataract Social History Housing: House Alcohol intake: never Patient Tobacco Use Status: Former Tobacco user Tobacco use type: Cigarette e-Cigarette/Vaping Use: Never Used Second Hand Smoke Exposure: No service: Yes Current occupational status: retired Cognitive needs: No Hearing needs: No Vision needs: Yes Review of Systems Const Denies daytime sleepiness, Denies excessive sweating, Denies fatigue, Denies fever(s), Denies lethargy, Denies malaise, Denies night sweats, Denies snoring and Denies weight loss Eyes Denies blurry vision and Denies itchy eyes ENT Denies nasal congestion, Denies post nasal drip, Denies sinus pain, Denies sinus pressure and Denies other ( Thrush) Card Denies chest pain, Denies pedal edema, Denies dyspnea, Denies orthopnea and Denies paroxysmal nocturnal dyspnea Resp Denies cough, Denies hemoptysis, Denies excessive phlegm production, Denies dyspnea, Denies snoring and Denies wheezing GI Denies abdominal pain and Denies heartburn Musc Denies myalgias, Denies arthralgias and Denies joint swelling Skin/Breast Denies rash Neuro Denies memory loss and Denies seizure-like activity Psych Denies abnormal sleep pattern, Denies anxiety and Denies memory loss Endo Denies excessive sweating, Denies fatigue and Denies heat intolerance Ford/Lymph Denies easy bruising Aller/Immun Denies itchy eyes, Denies seasonal rhinorrhea and Denies wheezing Physical Exam Vital Signs: Last Vital Signs Pulse 112 H 09/20/24 13:04 BP 170/82 H 09/20/24 13:04 Pulse Ox 94 09/20/24 13:04 Oxygen Delivery Method Nasal Cannula 09/20/24 13:04 Oxygen Flow Rate 2 09/20/24 13:04 BMI result Body Mass Index 26.6 Const General: no acute distress and alert Nutritional Appearance: not obese Orientation/consciousness: Other orientation findings ( oriented) HEENT Head: Yes atraumatic Eyes General: appearance normal, both eyes and all related structures Sclerae: sclerae normal EOM: EOMs intact bilaterally Neck Neck: Yes supple Lymphatic: no lymphadenopathy noted Resp Effort & Inspection: normal respiratory effort and no use of accessory muscles Auscultation: clear to auscultation bilaterally Cardio Rate: regular rate Rhythm: regular rhythm Heart sounds: no gallops, no murmurs and no rubs Skin General skin exam: other ( warm) Extrem General: No clubbing, No cyanosis and No edema Assessment & Plan Assessment & Plan (1) COPD (chronic obstructive pulmonary disease): Code(s): J44.9 - Chronic obstructive pulmonary disease, unspecified Category: Medical Qualifiers: COPD type: chronic bronchitis Chronic bronchitis type: simple Qualified Code(s): J41.0 - Simple chronic bronchitis Plan: Well controlled on current regimen as needed albuterol MDI. Patient does not derive significant symptomatic benefit from Anoro. Continue current regimen. (2) Supplemental oxygen dependent: Code(s): Z99.81 - Dependence on supplemental oxygen Category: Medical Plan: Continue supplemental oxygen to maintain O2 saturation of 88-92%. (3) Pulmonary nodule 1 cm or greater in diameter: Code(s): R91.1 - Solitary pulmonary nodule Category: Medical Plan: Follow-up CT chest is pending. Coding Level of Care Code Est Pt Level 4 (74433) Complex EM visit Add On G2211 Diagnoses Simple chronic bronchitis J41.0 COPD type: chronic bronchitis Chronic bronchitis type: simple Supplemental oxygen dependent Z99.81 Pulmonary nodule 1 cm or greater in diameter R91.1
[2024-09-20 13:04] VITALS: BP 170/82; PULSE 112; O2SAT 94; BMI 26.6
== END 2024-09-20 13:25 | disposition home or self-care (01) ==
PROVIDERS: PCP Physician Assistant; Visit Provider Internal Medicine Pulmonary Disease
DX: J41.0 Simple chronic bronchitis (principal); Z99.81 Dependence on supplemental oxygen; R91.1 Solitary pulmonary nodule
CPT/HCPCS: 99214; G2211

== ENCOUNTER → 2024-09-20 12:54 | Outpatient (BNVA) | payer MEDICARE, SELFPAY | PROVIDERS: PCP Physician Assistant; Visit Provider Internal Medicine Pulmonary Disease | DX: J41.0 Simple chronic bronchitis (principal); R91.1 Solitary pulmonary nodule; Z99.81 Dependence on supplemental oxygen | CPT/HCPCS: 99212 ==

== ENCOUNTER 2025-01-21 12:28 | Outpatient (AMB) | payer MEDICARE, SELFPAY ==
[2025-01-21 12:54] VITALS: BP 138/82; PULSE 108; O2SAT 90; BMI 26.4
--- NOTE | 2025-01-21 12:54 | A.OFFVIS_ITS ---
Vital Signs 01/21/25 12:54 Height 5 ft 11 in Weight 189 lb BMI 26.4 BP 138/82 Blood Pressure Location Rt brachial Position Sitting Pulse 108 H Pulse Source Doppler Pulse Oximetry (%) 90 L Oxygen Delivery Method Room Air Intake Visit Reasons: Shortness of breath Allergies No Known Allergies Allergy (Verified 09/02/24 14:40) HPI HPI Shortness of breath: Details: 79-year-old gentleman, 40+ pack-year smoker, quit 2006 followed for very severe COPD supplemental oxygen dependent utilizing portable oxygen concentrator and pulmonary nodules. Continues on Anoro and albuterol MDI with good control of his symptoms. He denies recent exacerbations. His follow-up CT chest showed stable pulmonary nodules. [facility] Medical History Cataracts, bilateral Surgical History History of cataract Social History Housing: House Alcohol intake: never Patient Tobacco Use Status: Former Tobacco user Tobacco use type: Cigarette e-Cigarette/Vaping Use: Never Used Second Hand Smoke Exposure: No service: Yes Current occupational status: retired Cognitive needs: No Hearing needs: No Vision needs: Yes Review of Systems Const Denies daytime sleepiness, Denies excessive sweating, Denies fatigue, Denies fever(s), Denies lethargy, Denies malaise, Denies night sweats, Denies snoring and Denies weight loss Eyes Denies blurry vision and Denies itchy eyes ENT Denies nasal congestion, Denies post nasal drip, Denies sinus pain, Denies sinus pressure and Denies other ( Thrush) Card Denies chest pain, Denies pedal edema, Denies dyspnea, Denies orthopnea and Denies paroxysmal nocturnal dyspnea Resp Denies cough, Denies hemoptysis, Denies excessive phlegm production, Denies dyspnea, Denies snoring and Denies wheezing GI Denies abdominal pain and Denies heartburn Musc Denies myalgias, Denies arthralgias and Denies joint swelling Skin/Breast Denies rash Neuro Denies memory loss and Denies seizure-like activity Psych Denies abnormal sleep pattern, Denies anxiety and Denies memory loss Endo Denies excessive sweating, Denies fatigue and Denies heat intolerance Ford/Lymph Denies easy bruising Aller/Immun Denies itchy eyes, Denies seasonal rhinorrhea and Denies wheezing Physical Exam Vital Signs: Last Vital Signs Pulse 108 H 01/21/25 12:54 BP 138/82 01/21/25 12:54 Pulse Ox 90 L 01/21/25 12:54 Oxygen Delivery Method Room Air 01/21/25 12:54 BMI result Body Mass Index 26.4 Const General: no acute distress and alert Nutritional Appearance: not obese Orientation/consciousness: Other orientation findings ( oriented) HEENT Head: Yes atraumatic Eyes General: appearance normal, both eyes and all related structures Sclerae: sclerae normal EOM: EOMs intact bilaterally Neck Neck: Yes supple Lymphatic: no lymphadenopathy noted Resp Effort & Inspection: normal respiratory effort and no use of accessory muscles Auscultation: clear to auscultation bilaterally Cardio Rate: regular rate Rhythm: regular rhythm Heart sounds: no gallops, no murmurs and no rubs Skin General skin exam: other ( warm) Extrem General: No clubbing, No cyanosis and No edema Assessment & Plan Assessment & Plan (1) COPD (chronic obstructive pulmonary disease): Code(s): J44.9 - Chronic obstructive pulmonary disease, unspecified Category: Medical Qualifiers: COPD type: chronic bronchitis Chronic bronchitis type: simple Qualified Code(s): J41.0 - Simple chronic bronchitis Plan: Well controlled on current regimen of Anoro and albuterol MDI. Continue current regimen. (2) Supplemental oxygen dependent: Code(s): Z99.81 - Dependence on supplemental oxygen Category: Medical Plan: Continue supplemental oxygen to maintain O2 saturation of 89-93%. (3) Pulmonary nodule 1 cm or greater in diameter: Code(s): R91.1 - Solitary pulmonary nodule Category: Medical Plan: Results of follow-up CT chest reviewed, stable pulmonary nodules, no further imaging follow-up is required. Coding Level of Care Code Est Pt Level 4 (13867) Diagnoses Simple chronic bronchitis J41.0 COPD type: chronic bronchitis Chronic bronchitis type: simple Supplemental oxygen dependent Z99.81 Pulmonary nodule 1 cm or greater in diameter R91.1
== END 2025-01-21 13:20 | disposition home or self-care (01) ==
LOC: HO.HPS 12:29
PROVIDERS: PCP Physician Assistant; Visit Provider Internal Medicine Pulmonary Disease
DX: J41.0 Simple chronic bronchitis (principal); Z99.81 Dependence on supplemental oxygen; R91.1 Solitary pulmonary nodule
CPT/HCPCS: 99214

== ENCOUNTER → 2025-01-21 12:28 | Outpatient (BNVA) | payer MEDICARE, SELFPAY | PROVIDERS: PCP Physician Assistant; Visit Provider Internal Medicine Pulmonary Disease | DX: J41.0 Simple chronic bronchitis (principal); R91.1 Solitary pulmonary nodule; Z99.81 Dependence on supplemental oxygen | CPT/HCPCS: 99212 ==

== ENCOUNTER 2025-03-02 14:07 | Outpatient (AMB) | payer MEDICARE, SELFPAY ==
--- NOTE | 2025-03-02 14:13 | A.OFFPC_ITS ---
Vital Signs 03/02/25 14:21 Height 5 ft 11 in Weight 190 lb BMI 26.5 BP 192/90 H Blood Pressure Location Lt brachial Position Sitting Pulse 122 H Pulse Source Pulse Oximeter Pulse Oximetry (%) 91 L Oxygen Delivery Method Nasal Cannula Oxygen Flow Rate 2 Intake Visit Reasons: f/u DMII/ HTN Emergency Medical Services Coordinator Required: No Accompanied by: Self / Same As Patient Allergies No Known Allergies Allergy (Verified 03/02/25 14:41) Medication List - Last Reconciled 03/02/25 by Sky Fletcher PA-C albuterol sulfate 90 mcg/actuation 1 inh inhalation QID PRN 30 days Anoro Ellipta 62.5-25 mcg/actuation (umeclidinium-vilanterol) 1 inh inhalation DAILY 30 days NS blood sugar diagnostic (FreeStyle Lite Strips) As directed blood-glucose meter (FreeStyle Lite Meter kit) As directed finasteride 5 mg PO DAILY 90 days lancets (FreeStyle Lancets) As directed metformin 500 mg PO BIDWMEAL 90 days Tobacco use date assessed: 03/02/25 Fall risk assessment: No Falls in past year Last assessed Fall Risk: 03/02/25 Dental Screening Dental Screen Date: 03/02/25 Did you have a dental visit in the last 12 months?: Yes Did you have a dental problem in the last 6 months where you did not have access to dental care?: No Was dental information given to patient?: Patient has dentist HPI f/u DMII/ HTN HPI Details Patient is a 79-year-old male here today for follow-up visit.? Pmhx of type 2 diabetes, hyperlipidemia COPD: FOllowed by [facility]. Continues on a portable supplemental oxygen via nasal cannula 2-3 L per minute. He has been started on maintenance inhaler ANORO. Chest CT- -> 1 cm right lower lobe nodular opacity, lung lesion versus nodular scarring/atelectasis. Found to low oxygen exertion, chest x-ray showing-->Diffuse peribronchial vascular opacities may reflect edema or atypical infection. Recently has been having episodes of spacing out and some lethargy. He was to overnight pulse oximetry tested though has never been mail to him. Will reach out to pulmonology Concern--> has developed a small area of dry patchy skin over his left arm. Appears to be eczema. Will supply patient with a topical steroid to use on the affected skin area Elevated blood pressure readings:? Blood pressures in office today elevated. Home readings are 110- 130s systolic .? He reports he has always had elevated blood pressures at doctor visits.? Likely has white coat hypertension.? Hold off on blood pressure medication at this time. .. Type 2 diabetes :? Today's A1c is elevated at 6.4 from 6.8. Has been working on diabetic diet. PLAN: Will continue metformin 500 BID .. .. Hyperlipidemia: Lipid panel showing borderline high total cholesterol and elevated LDL at 132. He does understand his cardiovascular risk being a diabetic though continues to decline starting statin therapy. .. Elevated PSA: He has started saw palmetto for his prostate. Advised on urology evaluation patient declines at this time. He does report at times having weak urinary stream and nocturia. Has been trying Saw palmetto. Most recent PSA decreased. Will continue to follow PSA [facility] Medical History Cataracts, bilateral Surgical History History of cataract Social History Housing: House Alcohol intake: never Patient Tobacco Use Status: Former Tobacco user Tobacco use type: Cigarette e-Cigarette/Vaping Use: Never Used Second Hand Smoke Exposure: No service: Yes Current occupational status: retired Cognitive needs: No Hearing needs: No Vision needs: Yes Questionnaire PHQ-9 Over the last 2 weeks, how often have you been bothered by any of the following problems? 1. Little interest or pleasure in doing things: not at all 2. Feeling down, depressed, or hopeless: not at all 3. Trouble falling or staying asleep, or sleeping too much: not at all 4. Feeling tired or having little energy: not at all 5. Poor appetite or overeating: not at all 6. Feeling bad about yourself - or that you are a failure or have let yourself or your family down: not at all 7. Trouble concentrating on things, such as reading the newspaper or watching television: not at all 8. Moving or speaking so slowly that other people could have noticed. Or the opposite - being so fidgety or restless that you have been moving around a lot more than usual: not at all 9. Thoughts that you would be better off or of hurting yourself in some way: not at all Total score: 0 Depression Screening Interpretation: Negative Depression Screening Done: Yes 22170 - PHQ-9 Billing: Yes Source: Developed by Drs. Lucio Estrada, Kera Frederick, Alvino Gilliam and colleagues, with an educational julian from [employer]. Thrive Questionnaire Date Thrive assessed: 03/02/25 I am a: Patient What is your living situation today?: I have a steady place to live Within the past 12 months, did the food you bought not last and you didn't have the money to get more?: I choose not to answer this question Within the past 12 months, did you worry whether your food would run out before you got money to buy more?: I choose not to answer this question Do you have trouble paying for medicines?: No Do you have trouble getting transportation to medical appointments?: No Do you have trouble paying your heating and electricity bill?: No Do you have trouble taking care of your child, family member or friend?: No Do you have trouble with day-to-day activities such as bathing, preparing meals, shopping, managing finances, etc.?: No Are you currently unemployed and looking for a job?: Yes Are you interested in more education?: I choose not to answer this question Please select the resources that you would like help with: None Currently or been in a relationship where the following occur: I choose not to answer THRIVE Score: 0 AUDIT C Alcohol Use Questionnaire (AUDIT-C) 1. How often do you have a drink containing alcohol?: Never 3. How often do you have six or more drinks on one occasion?: Never Total Score: 0 MARIA DEL CARMEN-7 AMB Questionnaire MARIA DEL CARMEN-7 Date MARIA DEL CARMEN - 7 assessed: 03/02/25 Feeling nervous, anxious, or on edge: 0 = Not at all Not being able to stop or control worryin = Not at all Worrying too much about different things: 0 = Not at all Trouble relaxin = Not at all Being so restless that it is hard to sit still: 0 = Not at all Becoming easily annoyed or irritable: 0 = Not at all Feeling afraid as if something awful might happen: 0 = Not at all Total MARIA DEL CARMEN-7 score (0-4 normal; 5-9 mild; 10-14 moderate; 15-21 severe): 0 Source: Developed by Drs. Lucio Estrada, Kera Frederick, Alvino Gilliam and colleagues, with an educational julian from [employer]. MARIA DEL CARMEN-7 Assessment Billing MARIA DEL CARMEN-7 Assessment Tool: MARIA DEL CARMEN-7 Assessment 14219 Review of Systems Const Denies headache(s) Eyes Denies loss of vision ENT Denies vertigo, Denies dizziness, Denies headache(s) and Denies sore throat Card Denies chest pain, Denies leg edema and Denies lightheadedness Resp Denies cough, Denies hemoptysis and Denies wheezing GI Denies abdominal pain, Denies melena, Denies constipation, Denies diarrhea and Denies vomiting Denies dysuria, Denies urinary frequency and Denies urinary urgency Musc Denies arthralgias, Denies joint swelling, Denies numbness and Denies tingling Neuro Denies Abnormal speech present, Denies behavioral changes, Denies vertigo, Denies dizziness, Denies headache(s), Denies loss of vision, Denies memory loss, Denies numbness and Denies tingling Psych Denies anxiety, Denies behavioral changes, Denies depression, Denies memory loss and Denies panic attacks Ford/Lymph Denies easy bleeding and Denies easy bruising Aller/Immun Denies wheezing Physical exam (Primary Care) Vital Signs: Last Vital Signs Pulse 122 H 03/02/25 14:21 BP 192/90 H 03/02/25 14:21 Pulse Ox 91 L 03/02/25 14:21 Oxygen Delivery Method Nasal Cannula 03/02/25 14:21 Oxygen Flow Rate 2 03/02/25 14:21 BMI result Body Mass Index 26.5 Tobacco/Smoking Status: Tobacco use Status Tobacco use date assessed 03/02/25 03/02/25 14:15 Patient Tobacco Use Status Former Tobacco user 03/02/25 14:15 Tobacco use type Cigarette 03/02/25 14:15 e-Cigarette/Vaping Use Never Used 03/02/25 14:15 PHQ-9: PHQ-9 Score PHQ-9: Total score 0 03/02/25 14:45 Depression Screening Interpretation: Negative Thrive Assessment: Date of Thrive Assessment Date Thrive assessed 03/02/25 03/02/25 14:15 Currently or been in a relationship where the following occur: I choose not to answer Const General: healthy appearing, no acute distress, alert and awake Nutritional Appearance: well nourished Orientation/consciousness: oriented to person, oriented to place and oriented to time HENMT Ears: TM's normal bilaterally General nose exam: Normal nasal mucous membranes and turbinates present Eyes Conjunctivae: conjunctivae normal Sclerae: sclerae normal Pupils: Equal, round and reactive pupils present Neck Neck: Yes no lymphadenopathy and Yes no JVD Thyroid: Thyroid normal Carotids: no bruits Resp Effort & Inspection: normal respiratory effort and not tachypneic Auscultation: no crackles, no rales, no rhonchi and no wheezes Cardio Rate: regular rate Rhythm: regular rhythm Heart sounds: no murmurs and normal S1 and S2 GI Palpation (GI): Soft to palpation, nontender, no hepatomegaly and no splenomegaly Auscultation: normal bowel sounds Skin General skin exam: no rashes or lesions noted and dry skin Neuro General: oriented to person, oriented to place and oriented to time Cranial nerves: Yes Equal, round and reactive pupils present Speech: No Abnormal speech present Gait exam (Neuro): Normal gait present Motor exam (neuro): no tremor noted Extrem Right upper extremity: full ROM Left upper extremity: full ROM Right lower extremity: full ROM; no edema Left lower extremity: full ROM; no edema Psych Mental Status: mental status grossly normal Speech and movement: Normal speech and movement present Affect: normal affect Attitude: cooperative Thought process: Normal thought process present Results AMB Hemoglobin A1c AMB Hemoglobin A1c 6.4 % Last Edit by AKUA Gallardo on 03/02/25 14:33 Results Reviewed Results Reviewed: Laboratory Last Values Hgb A1c (Clinic) 6.4 % (4.0-6.0) H 03/02/25 14:33 Coding Level of Care Code Est Pt Level 4 (12553) Diagnoses Type 2 diabetes mellitus with hyperglycemia, without long-term current use of insulin E11.65 Diabetes mellitus nursing home insulin use: without nursing home use Primary hypertension I10 Hypertension type: primary hypertension Mixed hyperlipidemia E78.2 Hyperlipidemia type: mixed hyperlipidemia Simple chronic bronchitis J41.0 COPD type: chronic bronchitis Chronic bronchitis type: simple Additional Codes MARIA DEL CARMEN-7 Assessment Billing - MARIA DEL CARMEN-7 Assessment Tool: MARIA DEL CARMEN-7 Assessment [id number] ([id number]) PHQ-9 - 29533 - PHQ-9 Billing: Yes ([id number]) Assessment & Plan Assessment & Plan (1) Type 2 diabetes mellitus with hyperglycemia: Code(s): E11.65 - Type 2 diabetes mellitus with hyperglycemia Category: Medical Qualifiers: Diabetes mellitus nursing home insulin use: without nursing home use Qualified Code(s): E11.65 - Type 2 diabetes mellitus with hyperglycemia Plan: Patient's type 2 diabetes well controlled with current dose of metformin. He has been trying to stay consistent with a diabetic diet. Goal A1c is to remain below 7.0 (2) HTN (hypertension): Code(s): I10 - Essential (primary) hypertension Category: Medical Qualifiers: Hypertension type: primary hypertension Qualified Code(s): I10 - Essential (primary) hypertension Plan: Patient's blood pressure elevated today in office. He reports that home blood pressures are 1 teens to 120 systolic. He believes he has a white coat hypertension. We discussed the possible need to start antihypertensive medication(lisinopril) for both his blood pressure and renal protection though he declines at this time not wanting any more medication. Goal blood pressures to remain below 140/90 consistently at home. (3) HLD (hyperlipidemia): Code(s): E78.5 - Hyperlipidemia, unspecified Category: Medical Qualifiers: Hyperlipidemia type: mixed hyperlipidemia Qualified Code(s): E78.2 - Mixed hyperlipidemia Plan: Patient's most recent lipid panel showing elevated total cholesterol and LDL. He is not interested in starting cholesterol medication. Will continue to work on lifestyle and dietary modifications. Goal LDL is to be below 100. (4) COPD (chronic obstructive pulmonary disease): Code(s): J44.9 - Chronic obstructive pulmonary disease, unspecified Category: Medical Qualifiers: COPD type: chronic bronchitis Chronic bronchitis type: simple Qualified Code(s): J41.0 - Simple chronic bronchitis Plan: Patient continues to follow [facility]. He continues on Supplemental oxygen particularly on exertion. Continues with the use of an albuterol inhaler as needed. He reports he has not really been using a Anoro maintenance inhaler as he believes it is not helpful for him. Orders: Orders AMB Hemoglobin A1c 03/02/25 E11.65 - Type 2 diabetes mellitus with hyperglycemia Comprehensive Briggs. Panel Fast 03/02/25 E11.65 - Type 2 diabetes mellitus with hyperglycemia Complete Blood Count no Diff 03/02/25 E11.65 - Type 2 diabetes mellitus with hyperglycemia Lipid Panel 03/02/25 E78.2 - Mixed hyperlipidemia Microalbumin, Random (w Creat) 03/02/25 E11.65 - Type 2 diabetes mellitus with hyperglycemia Prostate Specific Antigen Scr 03/02/25 R97.20 - Elevated prostate specific antigen [PSA], Z12.5 - Encounter for screening for malignant neoplasm of prostate Medications: New triamcinolone acetonide 0.1% 1 appl topical DAILY 30 days 30 grams 0RF L30.9 - Dermatitis, unspecified Refilled finasteride 5 mg PO DAILY 90 days 90 tabs 1RF R97.20 - Elevated prostate specific antigen [PSA] metformin 500 mg PO BIDWMEAL 90 days 180 tabs 3RF E11.65 - Type 2 diabetes mellitus with hyperglycemia Anoro Ellipta 62.5-25 mcg/actuation (umeclidinium-vilanterol) 1 inh inhalation DAILY 30 days 1 ea 6RF NS R06.09 - Other forms of dyspnea blood sugar diagnostic (FreeStyle Lite Strips) As directed 100 ea 3RF E11.65 - Type 2 diabetes mellitus with hyperglycemia, E11.9 - Type 2 diabetes mellitus without complications lancets (FreeStyle Lancets) As directed 100 ea 3RF E11.65 - Type 2 diabetes mellitus with hyperglycemia, E11.9 - Type 2 diabetes mellitus without complications Patient Instructions: Goal: A1c to be below 7.0, blood pressure to remain below 140/90 at home. Barriers: Adherence to physical activity and healthy eating habits
[2025-03-02 14:21] VITALS: BP 192/90; PULSE 122; O2SAT 91; BMI 26.5
== END 2025-03-02 15:06 | disposition home or self-care (01) ==
LOC: HO.HMCH 14:08
PROVIDERS: PCP Physician Assistant; Visit Provider Physician Assistant
DX: E11.65 Type 2 diabetes mellitus with hyperglycemia (principal); I10 Essential (primary) hypertension; E78.2 Mixed hyperlipidemia; J41.0 Simple chronic bronchitis

== ENCOUNTER → 2025-03-02 14:07 | Outpatient (BNVA) | payer MEDICARE, SELFPAY | PROVIDERS: PCP Physician Assistant; Visit Provider Physician Assistant | DX: E11.65 Type 2 diabetes mellitus with hyperglycemia (principal); I10 Essential (primary) hypertension; E78.2 Mixed hyperlipidemia; J41.0 Simple chronic bronchitis | CPT/HCPCS: 83036; 96127; 99212 ==

== ENCOUNTER 2025-06-09 13:10 | Outpatient (AMB) | payer MEDICARE, SELFPAY ==
--- OUTSIDE RECORDS SUMMARY | 2021-01-09 08:00 | XMS_ITS | Continuity of Care Document ---
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 Immunization Series Date Given Administered By Site Reaction Lot Number CVX Code Drug Metal Bumper Status Comments Source COVID-19 ([employer]), VECTOR-NR, [id number], PF, 0.5 ML 1 2020 212 complet ed JSN; [id number]; 1 [place] [facility]
--- NOTE | 2025-06-09 13:26 | A.OFFPC_ITS ---
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 Accompanied by: Self / Same As Patient Allergies No Known Allergies Allergy (Verified 06/09/25 13:34) Medication List - Last Reconciled 06/09/25 by Kim Ortega PA-C albuterol sulfate 90 mcg/actuation 1 inh inhalation QID PRN 30 days Anoro Ellipta 62.5-25 mcg/actuation (umeclidinium-vilanterol) 1 inh inhalation DAILY 30 days NS blood sugar diagnostic (FreeStyle Lite Strips) As directed blood-glucose meter (FreeStyle Lite Meter kit) As directed finasteride 5 mg PO DAILY 90 days lancets (FreeStyle Lancets) As directed metformin 500 mg PO BIDWMEAL 90 days triamcinolone acetonide 0.1% 1 appl topical DAILY 30 days Tobacco use date assessed: 06/09/25 Fall risk assessment: No Falls in past year Last assessed Fall Risk: 06/09/25 Dental Screening Dental Screen Date: 06/09/25 Did you have a dental visit in the last 12 months?: No Did you have a dental problem in the last 6 months where you did not have access to dental care?: No Was dental information given to patient?: No HPI Skin Concerns 2 HPI0 Details 79-year-old male with past medical histo ry of hypertension, hyperlipidemia, diabetes mellitus, depression, COPD on supplemental oxygen last seen 02/2025 by Chance coming in for acute problem.? Presenting with a skin infection. The wound appeared spontaneously about a week ago without any trauma or inciting event. It is not painful unless pressure is applied, and there has been no drainage. The patient has a history of exposure to Agent [place], which he believes is related to his skin condition. Similar skin issues have been treated successfully with medication in the past. The patient denies any recent trauma or manipulation of the wound. [facility] Medical History Cataracts, bilateral Surgical History History of cataract Social History Housing: House Alcohol intake: never Patient Tobacco Use Status: Former Tobacco user Tobacco use type: Cigarette e-Cigarette/Vaping Use: Never Used Second Hand Smoke Exposure: No service: Yes Current occupational status: retired Cognitive needs: No Hearing needs: No Vision needs: Yes Questionnaire Thrive Questionnaire Date Thrive assessed: 06/09/25 I am a: Patient What is your living situation today?: I have a steady place to live Within the past 12 months, did the food you bought not last and you didn't have the money to get more?: I choose not to answer this question Within the past 12 months, did you worry whether your food would run out before you got money to buy more?: I choose not to answer this question Do you have trouble paying for medicines?: No Do you have trouble getting transportation to medical appointments?: No Do you have trouble paying your heating and electricity bill?: No Do you have trouble taking care of your child, family member or friend?: No Do you have trouble with day-to-day activities such as bathing, preparing meals, shopping, managing finances, etc.?: No Are you currently unemployed and looking for a job?: Yes Are you interested in more education?: I choose not to answer this question Please select the resources that you would like help with: None Currently or been in a relationship where the following occur: I choose not to answer THRIVE Score: 0 MARIA DEL CARMEN-7 AMB Questionnaire MARIA DEL CARMEN-7 Date MARIA DEL CARMEN - 7 assessed: 06/09/25 Source: Developed by Drs. Lucio Estrada, Kera Frederick, Alvino Gilliam and colleagues, with an educational julian from [employer]. Review of Systems Const Denies body aches, Denies chills, Denies fever(s) and Denies poor appetite Eyes Reports no additional complaints Card Denies chest pain, Denies lightheadedness and Denies dyspnea Resp Denies dyspnea GI Denies abdominal pain, Denies nausea and Denies vomiting Reports no additional complaints Musc Reports no additional complaints and Denies abnormal gait Skin/Breast Reports system reviewed and no additional complaints, except as documented Neuro Denies abnormal gait Psych Reports no additional complaints Physical exam (Primary Care) Vital Signs: Last Vital Signs Pulse 71 06/09/25 13:28 BP 166/68 H 06/09/25 13:28 Pulse Ox 98 06/09/25 13:28 Oxygen Delivery Method Room Air 06/09/25 13:28 BMI result Body Mass Index 26.0 Tobacco/Smoking Status: Tobacco use Status Tobacco use date assessed 06/09/25 06/09/25 13:33 Patient Tobacco Use Status Former Tobacco user 06/09/25 13:33 Tobacco use type Cigarette 06/09/25 13:33 e-Cigarette/Vaping Use Never Used 06/09/25 13:33 Thrive Assessment: Date of Thrive Assessment Date Thrive assessed 06/09/25 06/09/25 13:33 Currently or been in a relationship where the following occur: I choose not to answer Const General: cooperative, healthy appearing, comfortable and no acute distress Orientation/consciousness: patient oriented x3 HENMT Head: Yes normocephalic Ears: hearing grossly normal bilaterally General nose exam: Normal external nose present Eyes General: appearance normal, both eyes and all related structures Conjunctivae: conjunctivae normal Neck Neck: Yes full ROM and Yes no lymphadenopathy Resp Effort & Inspection: normal respiratory effort Auscultation: clear to auscultation bilaterally, no crackles, no rales, no rhonchi and no wheezes Cardio Rate: regular rate Rhythm: regular rhythm Skin Other: General skin exam: no rashes or lesions noted Neuro General: patient oriented x3 Gait exam (Neuro): Normal gait present Extrem General: Yes normal to inspection, Yes full ROM and No edema Psych Affect: normal affect Attitude: cooperative Insight: Good insight present (Psych) Judgement: Good judgement present (Psych) Coding Level of Care Code Est Pt Level 3 (77131) Diagnoses Cellulitis L03.90 Assessment & Plan Assessment & Plan (1) Cellulitis: Code(s): L03.90 - Cellulitis, unspecified Category: Medical Plan: The patient will begin antibiotic therapy to treat the skin infection, as it is not yet ready for drainage. He should observe the wound for any signs of worsening, such as increased redness or drainage, and seek follow-up care if these occur. The wound should be kept covered during activity but allowed to air out when resting to aid in healing. The patient is to take the antibiotics four times daily with meals. If lesion does not improve reach out to the office Plan This note was constructed using voice recognition software. While every effort has been made to ensure accuracy and solar field installation crew member, still areas may have been included sometimes these areas may affect the content or meeting of the given symptoms. Total time spent caring for the patient today was 20 minutes. This includes time spent before the visit reviewing the chart, time spent during the visit, and time spent after the visit and documentation. Patient was informed and verbally consented to the use of an ambient scribe for clinic note documentation during this visit. Medications: New 2 cephalexin 500 mg PO QID 28 caps 0RF 7 days
[2025-06-09 13:28] VITALS: BP 166/68; PULSE 71; O2SAT 98; BMI 26.0
== END 2025-06-09 13:47 | disposition home or self-care (01) ==
LOC: HO.HMCH 13:11
PROVIDERS: PCP Physician Assistant
DX: L03.90 Cellulitis, unspecified (principal)

== ENCOUNTER → 2025-06-09 13:10 | Outpatient (BNVA) | payer MEDICARE, SELFPAY | PROVIDERS: PCP Physician Assistant | DX: L03.90 Cellulitis, unspecified (principal) | CPT/HCPCS: 99212 ==

== ENCOUNTER 2025-07-11 13:07 | Outpatient (AMB) | payer MEDICARE, SELFPAY ==
--- NOTE | 2025-07-11 13:14 | A.OFFPC_ITS ---
Vital Signs 07/11/25 13:15 Height 5 ft 11 in Weight 185 lb 6 oz BMI 25.9 BP 180/90 H Blood Pressure Location Lt brachial Position Sitting Pulse 122 H Pulse Source Pulse Oximeter Temp Source Temporal Artery Scan Pulse Oximetry (%) 90 L Oxygen Delivery Method Nasal Cannula Oxygen Flow Rate 2 Intake Visit Reasons: Shortness of breath Intake Note: Patient is here to follow up on Shortness of breath. 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: No Fish Net Stringer: Not Required per policy Accompanied by: Self / Same As Patient Allergies No Known Allergies Allergy (Verified 07/11/25 13:29) Medication List - Last Reconciled 07/11/25 by Sky Fletcher PA-C albuterol sulfate 90 mcg/actuation 1 inh inhalation QID PRN 30 days Anoro Ellipta 62.5-25 mcg/actuation (umeclidinium-vilanterol) 1 inh inhalation DAILY 30 days NS blood sugar diagnostic (FreeStyle Lite Strips) As directed blood-glucose meter (FreeStyle Lite Meter kit) As directed finasteride 5 mg PO DAILY 90 days lancets (FreeStyle Lancets) As directed metformin 500 mg PO BIDWMEAL 90 days triamcinolone acetonide 0.1% 1 appl topical DAILY 30 days Tobacco use date assessed: 07/11/25 Fall risk assessment: No Falls in past year Last assessed Fall Risk: 07/11/25 Dental Screening Dental Screen Date: 07/11/25 Did you have a dental visit in the last 12 months?: Yes Did you have a dental problem in the last 6 months where you did not have access to dental care?: No Was dental information given to patient?: Patient has dentist HPI Shortness of breath HPI Details The patient is a 79-year-old male presenting with dyspnea, nonproductive cough, and hypertension. The dyspnea is accompanied by a nonproductive cough and has been persistent, affecting his daily activities. He reports experiencing low back pain, particularly above the kidneys, which has been ongoing and contributes to his discomfort. The patient has also been experiencing insomnia and hallucinations, which are suspected to be related to nocturnal oxygen desaturation. His blood pressure has been consistently high, and there is noted fluid retention, particularly in the abdomen. The patient has a history of pulmonary fibrosis, which may be contributing to his respiratory symptoms. He is also prediabetic, with a recent A1c of 6.4, indicating the need for continued monitoring and management. [facility] Medical History Cataracts, bilateral Surgical History History of cataract Social History Housing: House Alcohol intake: never Patient Tobacco Use Status: Former Tobacco user Tobacco use type: Cigarette e-Cigarette/Vaping Use: Never Used Second Hand Smoke Exposure: Yes service: Yes Current occupational status: retired Cognitive needs: No Hearing needs: No Vision needs: Yes Questionnaire Thrive Questionnaire Date Thrive assessed: 03/02/25 I am a: Patient What is your living situation today?: I have a steady place to live Within the past 12 months, did the food you bought not last and you didn't have the money to get more?: I choose not to answer this question Within the past 12 months, did you worry whether your food would run out before you got money to buy more?: I choose not to answer this question Do you have trouble paying for medicines?: No Do you have trouble getting transportation to medical appointments?: No Do you have trouble paying your heating and electricity bill?: No Do you have trouble taking care of your child, family member or friend?: No Do you have trouble with day-to-day activities such as bathing, preparing meals, shopping, managing finances, etc.?: No Are you currently unemployed and looking for a job?: Yes Are you interested in more education?: I choose not to answer this question Please select the resources that you would like help with: None Currently or been in a relationship where the following occur: I choose not to answer THRIVE Score: 0 MARIA DEL CARMEN-7 AMB Questionnaire MARIA DEL CARMEN-7 Date MARIA DEL CARMEN - 7 assessed: 06/09/25 Source: Developed by Drs. Lucio Estrada, Kera Frederick, Alvino Gilliam and colleagues, with an educational julian from [employer]. Review of Systems Const Denies headache(s) Eyes Denies loss of vision ENT Denies vertigo, Denies dizziness, Denies headache(s) and Denies sore throat Card Denies chest pain, Denies leg edema and Denies lightheadedness Resp Denies cough, Denies hemoptysis and Denies wheezing GI Denies abdominal pain, Denies melena, Denies constipation, Denies diarrhea and Denies vomiting Denies dysuria, Denies urinary frequency and Denies urinary urgency Musc Denies arthralgias, Denies joint swelling, Denies numbness and Denies tingling Neuro Denies Abnormal speech present, Denies behavioral changes, Denies vertigo, Denies dizziness, Denies headache(s), Denies loss of vision, Denies memory loss, Denies numbness and Denies tingling Psych Denies anxiety, Denies behavioral changes, Denies depression, Denies memory loss and Denies panic attacks Ford/Lymph Denies easy bleeding and Denies easy bruising Aller/Immun Denies wheezing Physical exam (Primary Care) Vital Signs: Last Vital Signs Pulse 122 H 07/11/25 13:15 BP 180/90 H 07/11/25 13:15 Pulse Ox 90 L 07/11/25 13:15 Oxygen Delivery Method Nasal Cannula 07/11/25 13:15 Oxygen Flow Rate 2 07/11/25 13:15 BMI result Body Mass Index 25.9 Tobacco/Smoking Status: Tobacco use Status Tobacco use date assessed 07/11/25 07/11/25 13:16 Patient Tobacco Use Status Former Tobacco user 07/11/25 13:14 Tobacco use type Cigarette 07/11/25 13:14 e-Cigarette/Vaping Use Never Used 07/11/25 13:14 Thrive Assessment: Date of Thrive Assessment Date Thrive assessed 03/02/25 07/11/25 13:14 Currently or been in a relationship where the following occur: I choose not to answer Const General: healthy appearing, no acute distress, alert and awake Nutritional Appearance: well nourished Orientation/consciousness: oriented to person, oriented to place and oriented to time [facility] Ears: TM's normal bilaterally General nose exam: Normal nasal mucous membranes and turbinates present Eyes Conjunctivae: conjunctivae normal Sclerae: sclerae normal Pupils: Equal, round and reactive pupils present Neck Neck: Yes no lymphadenopathy and Yes no JVD Thyroid: Thyroid normal Carotids: no bruits Chest Other: Tachycardic Resp Effort & Inspection: normal respiratory effort and not tachypneic Auscultation: no crackles, no rales, no rhonchi and no wheezes Cardio Rate: regular rate Rhythm: regular rhythm Heart sounds: no murmurs and normal S1 and S2 GI Palpation (GI): Soft to palpation, nontender, no hepatomegaly and no splenomegaly Auscultation: normal bowel sounds Skin General skin exam: no rashes or lesions noted and dry skin Neuro General: oriented to person, oriented to place and oriented to time Cranial nerves: Yes Equal, round and reactive pupils present Speech: No Abnormal speech present Gait exam (Neuro): Normal gait present Motor exam (neuro): no tremor noted Extrem Right upper extremity: full ROM Left upper extremity: full ROM Right lower extremity: full ROM; no edema Left lower extremity: full ROM; no edema Psych Mental Status: mental status grossly normal Speech and movement: Normal speech and movement present Affect: normal affect Attitude: cooperative Thought process: Normal thought process present Coding Level of Care Code Est Pt Level 3 (14681) Diagnoses Simple chronic bronchitis J41.0 COPD type: chronic bronchitis Chronic bronchitis type: simple Assessment & Plan Assessment & Plan (1) COPD (chronic obstructive pulmonary disease): Code(s): J44.9 - Chronic obstructive pulmonary disease, unspecified Category: Medical Qualifiers: COPD type: chronic bronchitis Chronic bronchitis type: simple Qualified Code(s): J41.0 - Simple chronic bronchitis Plan: Patient continues to follow [place] pulmonology. He continues on Supplemental oxygen particularly on exertion. Today on exam hypertensive, tachycardic in hypoxemic. The patient will be referred to the emergency department for further evaluation, including chest X-ray and blood work, to assess the cause of dyspnea. Consideration for pulmonary function tests and possible initiation of steroids to manage symptoms related to pulmonary fibrosis. Medications: New [Oxygen concentrate] As directed 1 ea 0RF J41.0 - Simple chronic bronchitis
[2025-07-11 13:15] VITALS: BP 180/90; PULSE 122; O2SAT 90; BMI 25.9
== END 2025-07-11 13:47 | disposition home or self-care (01) ==
PROVIDERS: PCP Physician Assistant; Visit Provider Physician Assistant
DX: J41.0 Simple chronic bronchitis (principal)

== ENCOUNTER → 2025-07-11 13:07 | Outpatient (BNVA) | payer MEDICARE, SELFPAY | PROVIDERS: PCP Physician Assistant; Visit Provider Physician Assistant | DX: J41.0 Simple chronic bronchitis (principal); Z87.891 Personal history of nicotine dependence | CPT/HCPCS: 99212 ==

== ENCOUNTER 2025-07-11 13:56 | Emergency (ER) | payer MEDICARE, SELFPAY ==
--- NOTE | ~2025-07-11 | XR_ITS ---
EXAMINATION: XR CHEST CLINICAL INFORMATION: dyspnea COMPARISON: November 27, 2023. TECHNIQUE: 2 views of the chest were obtained. FINDINGS: Pulmonary reticular pattern. Hyperinflated lungs. No gross consolidation, pleural effusion or pneumothorax. Cardiomediastinal silhouette size is normal. Multilevel spondylosis and a shaped curvature of the axial skeleton. 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 If clinical concern recommend CT chest. Electronically signed by: Skip Ruth MD 07/11/2025 02:48 PM EDT
[2025-07-11 14:06] VITALS: BP 178/84; PULSE 120; RESP 18; TEMP 36.8; O2SAT 91; BMI 25.9
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
--- NOTE | 2025-07-11 14:10 | ECG_ITS ---
Test Reason : DYSPNEA Blood Pressure : */* mmHG Vent. Rate : 115 BPM Atrial Rate : 115 BPM P-R Int : 152 ms QRS Dur : 90 ms QT Int : 324 ms P-R-T Axes : 82 95 63 degrees QTcB Int : 448 ms Sinus tachycardia with occasional Premature ventricular complexes Rightward axis Abnormal ECG No previous ECGs available Referred By: Judy Malik Electronically Signed By: SHAILA RAM
[2025-07-11 14:35] LABS: MANUAL DIFF FLAG NO
[2025-07-11 14:36] LABS: Venous Blood Gas Refer to POC result
[2025-07-11 14:37] LABS: VBG HCO3 36 mmol/L (22-26); VBG O2 % Saturation 98.0 %
[2025-07-11 14:41] LABS: Hematocrit 44.4 % (42.0-52.0); Hemoglobin 15.0 g/dl (14.0-18.0); Imm Gran Abs Auto 0.02 X10*3/uL (0.00-0.03); Imm Gran Pct Auto 0.2 % (0.0-0.4); Lymphocytes Absolute Auto 1.3 X10*3/uL (1.2-4.9); Mean Corpuscular HGB Conc 33.8 g/dl (31.0-36.0); Mean Corpuscular Hemoglobin 30.9 pg (27.0-33.0); Mean Corpuscular Volume 91.4 fL (80.0-98.0); NRBC Abs Auto 0.000 X10*3/uL (0.0-0.012); NRBC Pct Auto 0.0 /100WBC (0.0-0.2); Platelet Count 209 X10*3/uL (160-400); Red Blood Count 4.86 X10*6/uL (4.60-5.80); White Blood Count 8.4 X10*3/uL (4.8-10.8)
[2025-07-11 14:48] LABS: INTERNATIONAL NORM RATIO 0.8 (0.9-1.1); Prothrombin Time 9.7 SEC (10.9-12.4)
[2025-07-11 14:54] LABS: Alanine Aminotransferase 17 U/L (0-40); Albumin Level 4.3 g/dL (3.5-5.0); Alkaline Phosphatase 87 U/L (39-117); Anion Gap 11 (12-20); Aspartate Amino Transferase 20 U/L (5-37); Blood Urea Nitrogen 11 mg/dL (9-16); Calcium 9.3 mg/dL (8.4-10.2); Carbon Dioxide 35 mmol/L (22-29); Chloride 102 mmol/L (96-108); Creatinine Clr Calc Pharmacy 76.8; Estimated Glomerular Filt Rate > 60; Potassium 4.2 mmol/L (3.3-5.1); Sodium 144 mmol/L (135-145); Total Protein 7.2 g/dL (6.5-8.0)
[2025-07-11 14:58] LABS: COVID-19 Test Negative (Negative); IDNOW Serial# 55D5AD1C; IDNOW Serial# 58CA691E; Influenza B2 Negative (Negative)
[2025-07-11 15:02] LABS: NT Pro B Type Natriuretic Pept 99.6 pg/mL (<300); Troponin-I High Sensitivity 4.2 ng/L (<3.5-35.0)
--- NOTE | 2025-07-11 18:47 | PC.NURSE ---
Patient/family approached this RN in waiting room triage, reporting that he's getting more uncomfortable. Daughter stated he's a diabetic, we've been here since 1pm and it's almost 7pm now. If it's gonna take another 3 hours or whatever, we're just gonna leave and call 911 to get him in faster because this is ridiculous . Offered POC Glucose & vitals recheck, but family stated just try to get him in faster . Judy Malik NP also present during this conversation. Encouraged to remain in ED. Reached out to charge loader regarding this interaction.
--- NOTE | 2025-07-11 19:13 | PC.NURSE ---
Cristian [phone] HCP
[2025-07-11 20:29] VITALS: BP 157/76; PULSE 93; RESP 20; TEMP 36.9; O2SAT 97
[2025-07-11] MEDS: Albuterol Sulfate 90 MCG 8 GM INHALER 2 PUFF INHALE (20:47)
[2025-07-11 21:24] LABS: Appearance Urine Cloudy; Glucose Urine UA Negative (Negative); PH 8.5 (5.0-9.0); Specific Gravity - Urine 1.015 (1.005-1.025)
[2025-07-11 22:02] VITALS: BP 140/76; PULSE 82; RESP 16; TEMP 36.3; O2SAT 94
--- NOTE | 2025-07-11 22:05 | MHC.EDTECH ---
ambulation pulse 02 done without oxygen 80 % moderate sob. patient clarified after that he uses 2 lmp when ambulating and activity. will notify dr hemant guerrero
[2025-07-11 22:45] VITALS: O2SAT 93
[2025-07-11 23:30] VITALS: BP 140/76; PULSE 82; RESP 16; TEMP 36.3; O2SAT 93
== END 2025-07-11 23:35 | disposition home or self-care (01) ==
PROVIDERS: Registered Nurse Emergency; Emergency Provider Student in an Organized Health Care Education/Training Program; PCP Physician Assistant
DX: J44.9 Chronic obstructive pulmonary disease, unspecified (principal); Z99.81 Dependence on supplemental oxygen; R06.02 Shortness of breath; R00.0 Tachycardia, unspecified; R05.9 Cough, unspecified; Z87.891 Personal history of nicotine dependence; Z79.899 Other long term (current) drug therapy; Z11.52 Encounter for screening for COVID-19
CPT/HCPCS: 36415; 71046; 80053; 81003; 82803; 83605; 83880; 84484; 85025; 85610; 87040; 87502; 87635; 93005; 99284; 99285

== ENCOUNTER → 2025-07-11 14:10 | Outpatient (BNV) | payer MEDICARE, SELFPAY | PROVIDERS: Emergency Provider Student in an Organized Health Care Education/Training Program; PCP Physician Assistant; Visit Provider Internal Medicine | DX: I49.3 Ventricular premature depolarization (principal); R00.0 Tachycardia, unspecified | CPT/HCPCS: 93010 ==

== ENCOUNTER → 2025-07-11 14:10 | Outpatient (BNV) | payer MEDICARE, SELFPAY | PROVIDERS: PCP Physician Assistant; Visit Provider Radiology Diagnostic Radiology | DX: J43.9 Emphysema, unspecified (principal) | CPT/HCPCS: 71046 ==

== ENCOUNTER 2025-09-02 08:04 | Outpatient (REF) | payer MEDICARE, SELFPAY ==
[2025-09-02 10:43] LABS: Hematocrit 42.2 % (42.0-52.0); Hemoglobin 13.8 g/dl (14.0-18.0); Mean Corpuscular HGB Conc 32.7 g/dl (31.0-36.0); Mean Corpuscular Hemoglobin 30.8 pg (27.0-33.0); Mean Corpuscular Volume 94.2 fL (80.0-98.0); NRBC Abs Auto 0.000 X10*3/uL (0.0-0.012); NRBC Pct Auto 0.0 /100WBC (0.0-0.2); Platelet Count 198 X10*3/uL (160-400); Red Blood Count 4.48 X10*6/uL (4.60-5.80); White Blood Count 7.2 X10*3/uL (4.8-10.8)
[2025-09-02 10:58] LABS: Alanine Aminotransferase 18 U/L (0-40); Albumin Level 4.3 g/dL (3.5-5.0); Alkaline Phosphatase 78 U/L (39-117); Blood Urea Nitrogen 12 mg/dL (9-16); Calcium 9.3 mg/dL (8.4-10.2); Cholesterol 231 mg/dL (<200); Estimated Glomerular Filt Rate > 60; HDL Cholesterol 63 mg/dL (>40); Total Protein 7.3 g/dL (6.5-8.0); Triglycerides 238 mg/dL (<150)
[2025-09-02 11:11] LABS: Anion Gap 14 (12-20); Aspartate Amino Transferase 31 U/L (5-37); Carbon Dioxide 35 mmol/L (22-29); Chloride 100 mmol/L (96-108); Potassium 4.9 mmol/L (3.3-5.1); Sodium 144 mmol/L (135-145)
[2025-09-02 11:21] LABS: Microalbum/Creatinine Ratio Ur 18.6 ug/mg cr (<30)
== END 2025-09-02 08:05 | disposition home or self-care (01) ==
LOC: HO.HMGCLDS 08:04
PROVIDERS: PCP Physician Assistant; Visit Provider Physician Assistant
DX: Z12.5 Encounter for screening for malignant neoplasm of prostate (principal); E78.2 Mixed hyperlipidemia; R97.20 Elevated prostate specific antigen [PSA]; E11.65 Type 2 diabetes mellitus with hyperglycemia
CPT/HCPCS: 36415; 80053; 80061; 82043; 82570; 84153; 85027

== ENCOUNTER 2025-09-05 14:00 | Outpatient (AMB) | payer MEDICARE, SELFPAY ==
--- NOTE | 2025-09-05 14:08 | A.OFFPC_ITS ---
Vital Signs 09/05/25 14:09 Height 5 ft 11 in Weight 188 lb 6 oz BMI 26.3 BP 166/86 H Blood Pressure Location Lt brachial Position Sitting Pulse 108 H Pulse Source Pulse Oximeter Temp 97.3 F Temp Source Temporal Artery Scan Pulse Oximetry (%) 90 L Oxygen Delivery Method Room Air Oxygen Flow Rate 2 Intake Visit Reasons: f/u DMII/ HTN Allergies No Known Allergies Allergy (Verified 09/05/25 14:18) Medication List - Last Reconciled 09/05/25 by Sky Fletcher PA-C albuterol sulfate 90 mcg/actuation 1 inh inhalation QID PRN 30 days Anoro Ellipta 62.5-25 mcg/actuation (umeclidinium-vilanterol) 1 inh inhalation DAILY 30 days NS blood sugar diagnostic (FreeStyle Lite Strips) As directed blood-glucose meter (FreeStyle Lite Meter kit) As directed finasteride 5 mg PO DAILY 90 days lancets (FreeStyle Lancets) As directed metformin 500 mg PO BIDWMEAL 90 days [Oxygen concentrate As directed] triamcinolone acetonide 0.1% 1 appl topical DAILY 30 days Tobacco use date assessed: 09/05/25 Fall risk assessment: No Falls in past year Last assessed Fall Risk: 09/05/25 Dental Screening Dental Screen Date: 09/05/25 Did you have a dental visit in the last 12 months?: No Did you have a dental problem in the last 6 months where you did not have access to dental care?: No Was dental information given to patient?: No HPI f/u DMII/ HTN HPI Details Patient is a 79-year-old male here today for follow-up visit.? Pmhx of type 2 diabetes, hyperlipidemia COPD: Following a recent visit to the emergency room, he was found to have tachycardia, hyperinflated lungs, and CO2 retention. He was treated with prednisone taper and a azithromycin, which reportedly worked well. The patient has been non-adherent with his prescribed daily maintenance inhaler for COPD, Anoro, and instead relies solely on his rescue inhaler. An at-home overnight oximetry study demonstrated significant nocturnal desaturation, with 239 minutes spent with an SpO2 below 88%. He reports experiencing nightmares and seeing shadow people at night, which the caregiver attributes to his low oxygen levels. The patient is a mouth breather, which may limit the effectiveness of his nocturnal oxygen via nasal cannula. PLAN: Will trial a new maintenance inhaler ( Breo) Elevated blood pressure readings:? Blood pressures in office today elevated. Home readings are 110- 130s systolic .? He reports he has always had elevated blood pressures at doctor visits.? Likely has white coat hypertension.? Hold off on blood pressure medication at this time. .. Type 2 diabetes :? Today's A1c at 6.5.. Has been working on diabetic diet. PLAN: Will continue metformin 500 BID .. .. Hyperlipidemia: Lipid panel showing borderline high total cholesterol and elevated LDL at 132. He does understand his cardiovascular risk being a diabetic though continues to decline starting statin therapy. PLAN: Will start atorvastatin 10 mg to reduce his LDL below 100 .. Elevated PSA: He has started saw palmetto for his prostate. Advised on urology evaluation patient declines at this time. He does report at times having weak urinary stream and nocturia. Has been trying Saw palmetto. Most recent PSA decreased. Will continue to follow PSA. Laboratory Tests 10/23/22 03/10/24 09/02/24 06:26 14:06 14:45 RBC Hgb Carbon Dioxide Fasting Glucose Hgb A1c (Clinic) 6.8 H 6.4 H Cholesterol LDL Cholesterol, C alc PSA Screen Urine Microalbumin 7.0 03/02/25 07/11/25 09/02/25 14:33 14:24 08:10 RBC 4.86 4.48 L Hgb 13.8 L Carbon Dioxide 35 H 35 H Fasting Glucose 123 H Hgb A1c (Clinic) 6.4 H Cholesterol 231 H LDL Cholesterol, C alc 121 H PSA Screen 1.64 Urine Microalbumin 09/02/25 08:15 RBC Hgb Carbon Dioxide Fasting Glucose Hgb A1c (Clinic) Cholesterol LDL Cholesterol, C alc PSA Screen Urine Microalbumin 15.0 [facility] Medical History Cataracts, bilateral Surgical History History of cataract Social History Housing: House Alcohol intake: never Patient Tobacco Use Status: Former Tobacco user Tobacco use type: Cigarette e-Cigarette/Vaping Use: Never Used Second Hand Smoke Exposure: Yes service: Yes Current occupational status: retired Cognitive needs: No Hearing needs: No Vision needs: Yes Questionnaire PHQ-9 Over the last 2 weeks, how often have you been bothered by any of the following problems? 1. Little interest or pleasure in doing things: not at all 2. Feeling down, depressed, or hopeless: not at all 3. Trouble falling or staying asleep, or sleeping too much: not at all 4. Feeling tired or having little energy: not at all 5. Poor appetite or overeating: not at all 6. Feeling bad about yourself - or that you are a failure or have let yourself or your family down: not at all 7. Trouble concentrating on things, such as reading the newspaper or watching television: not at all 8. Moving or speaking so slowly that other people could have noticed. Or the opposite - being so fidgety or restless that you have been moving around a lot more than usual: not at all 9. Thoughts that you would be better off or of hurting yourself in some way: not at all Total score: 0 Depression Screening Interpretation: Negative Depression Screening Done: Yes Source: Developed by Drs. Lucio Estrada, Kera Frederick, Alvino Gilliam and colleagues, with an educational julian from [employer]. Thrive Questionnaire Date Thrive assessed: 03/02/25 I am a: Patient What is your living situation today?: I have a steady place to live Within the past 12 months, did the food you bought not last and you didn't have the money to get more?: I choose not to answer this question Within the past 12 months, did you worry whether your food would run out before you got money to buy more?: I choose not to answer this question Do you have trouble paying for medicines?: No Do you have trouble getting transportation to medical appointments?: No Do you have trouble paying your heating and electricity bill?: No Do you have trouble taking care of your child, family member or friend?: No Do you have trouble with day-to-day activities such as bathing, preparing meals, shopping, managing finances, etc.?: No Are you currently unemployed and looking for a job?: Yes Are you interested in more education?: I choose not to answer this question Please select the resources that you would like help with: None Currently or been in a relationship where the following occur: I choose not to answer THRIVE Score: 0 AUDIT C Alcohol Use Questionnaire (AUDIT-C) 1. How often do you have a drink containing alcohol?: Never 3. How often do you have six or more drinks on one occasion?: Never Total Score: 0 MARIA DEL CARMEN-7 AMB Questionnaire MARIA DEL CARMEN-7 Date MARIA DEL CARMEN - 7 assessed: 06/09/25 Feeling nervous, anxious, or on edge: 0 = Not at all Not being able to stop or control worryin = Not at all Worrying too much about different things: 0 = Not at all Trouble relaxin = Not at all Being so restless that it is hard to sit still: 0 = Not at all Becoming easily annoyed or irritable: 0 = Not at all Feeling afraid as if something awful might happen: 0 = Not at all Total MARIA DEL CARMEN-7 score (0-4 normal; 5-9 mild; 10-14 moderate; 15-21 severe): 0 Source: Developed by Drs. Lucio Estrada, Kera Frederick, Alvino Gilliam and colleagues, with an educational julian from [employer]. Review of Systems Const Denies headache(s) Eyes Denies loss of vision ENT Denies vertigo, Denies dizziness, Denies headache(s) and Denies sore throat Card Denies chest pain, Denies leg edema and Denies lightheadedness Resp Denies cough, Denies hemoptysis and Denies wheezing GI Denies abdominal pain, Denies melena, Denies constipation, Denies diarrhea and Denies vomiting Denies dysuria, Denies urinary frequency and Denies urinary urgency Musc Denies arthralgias, Denies joint swelling, Denies numbness and Denies tingling Neuro Denies Abnormal speech present, Denies behavioral changes, Denies vertigo, Denies dizziness, Denies headache(s), Denies loss of vision, Denies memory loss, Denies numbness and Denies tingling Psych Denies anxiety, Denies behavioral changes, Denies depression, Denies memory loss and Denies panic attacks Ford/Lymph Denies easy bleeding and Denies easy bruising Aller/Immun Denies wheezing Physical exam (Primary Care) Vital Signs: Last Vital Signs Temp 97.3 F 09/05/25 14:09 Pulse 108 H 09/05/25 14:09 BP 166/86 H 09/05/25 14:09 Pulse Ox 90 L 09/05/25 14:09 Oxygen Delivery Method Room Air 09/05/25 14:09 Oxygen Flow Rate 2 09/05/25 14:09 BMI result Body Mass Index 26.3 Tobacco/Smoking Status: Tobacco use Status Tobacco use date assessed 09/05/25 09/05/25 14:14 Patient Tobacco Use Status Former Tobacco user 09/05/25 14:14 Tobacco use type Cigarette 09/05/25 14:14 e-Cigarette/Vaping Use Never Used 09/05/25 14:14 PHQ-9: PHQ-9 Score PHQ-9: Total score 0 09/05/25 14:14 Depression Screening Interpretation: Negative Thrive Assessment: Date of Thrive Assessment Date Thrive assessed 03/02/25 09/05/25 14:14 Currently or been in a relationship where the following occur: I choose not to answer Const General: healthy appearing, no acute distress, alert and awake Nutritional Appearance: well nourished Orientation/consciousness: oriented to person, oriented to place and oriented to time HENMT Ears: TM's normal bilaterally General nose exam: Normal nasal mucous membranes and turbinates present Eyes Conjunctivae: conjunctivae normal Sclerae: sclerae normal Pupils: Equal, round and reactive pupils present Neck Neck: Yes no lymphadenopathy and Yes no JVD Thyroid: Thyroid normal Carotids: no bruits Resp Effort & Inspection: normal respiratory effort and not tachypneic Auscultation: no crackles, no rales, no rhonchi and no wheezes Cardio Rate: regular rate Rhythm: regular rhythm Heart sounds: no murmurs and normal S1 and S2 GI Palpation (GI): Soft to palpation, nontender, no hepatomegaly and no splenomegaly Auscultation: normal bowel sounds Skin General skin exam: no rashes or lesions noted and dry skin Neuro General: oriented to person, oriented to place and oriented to time Cranial nerves: Yes Equal, round and reactive pupils present Speech: No Abnormal speech present Gait exam (Neuro): Normal gait present Motor exam (neuro): no tremor noted Extrem Right upper extremity: full ROM Left upper extremity: full ROM Right lower extremity: full ROM; no edema Left lower extremity: full ROM; no edema Psych Mental Status: mental status grossly normal Speech and movement: Normal speech and movement present Affect: normal affect Attitude: cooperative Thought process: Normal thought process present Results AMB Hemoglobin A1c AMB Hemoglobin A1c 6.5 % Last Edit by Lena Reynolds CMA on 09/05/25 14:16 Results Reviewed Results Reviewed: Laboratory Last Values Hgb A1c (Clinic) 6.5 % (4.0-6.0) H 09/05/25 14:14 Coding Level of Care Code Est Pt Level 4 (01011) Diagnoses Simple chronic bronchitis J41.0 COPD type: chronic bronchitis Chronic bronchitis type: simple Mixed hyperlipidemia E78.2 Hyperlipidemia type: mixed hyperlipidemia Anemia, unspecified type D64.9 Anemia type: unspecified type Lower abdominal pain R10.30 Type 2 diabetes mellitus with hyperglycemia, without long-term current use of insulin E11.65 Diabetes mellitus skilled nursing insulin use: without oysterman use Assessment & Plan Assessment & Plan (1) COPD (chronic obstructive pulmonary disease): Code(s): J44.9 - Chronic obstructive pulmonary disease, unspecified Category: Medical Qualifiers: COPD type: chronic bronchitis Chronic bronchitis type: simple Qualified Code(s): J41.0 - Simple chronic bronchitis Plan: For management of the patient's COPD, a prescription for Breo Ellipta once daily was sent to the pharmacy, as it contains an inhaled corticosteroid which may be beneficial given his good response to oral prednisone. Additionally, a 21-day course of low-dose prednisone 5 mg daily was prescribed to help improve his current respiratory symptoms. Montelukast was also prescribed to address potential allergic triggers in his [place] home environment. Regarding the suspected sleep-disordered breathing and severe nocturnal desaturation, the patient was strongly advised to discuss these findings with his iron handler at his upcoming appointment in nine days. The possibility of an in-lab sleep study and alternative interfaces to a full CPAP mask were discussed. (2) HLD (hyperlipidemia): Code(s): E78.5 - Hyperlipidemia, unspecified Category: Medical Qualifiers: Hyperlipidemia type: mixed hyperlipidemia Qualified Code(s): E78.2 - Mixed hyperlipidemia Plan: Patient noted to have elevated total cholesterol and LDL. He is now agreeable with the start atorvastatin 10 mg to help reduce his LDL below 100 to help reduce his cardiovascular risk. (3) Anemia: Code(s): D64.9 - Anemia, unspecified Category: Medical Qualifiers: Anemia type: unspecified type Qualified Code(s): D64.9 - Anemia, unspecified Plan: Noticed slight anemia on most recent labs. Patient and caregiver concerned and would like evaluation for possible bleed. He has not a good candidate for colonoscopy thus will CT of abdomen and pelvis has been ordered. (4) Lower abdominal pain: Code(s): R10.30 - Lower abdominal pain, unspecified Category: Medical Plan: As above (5) Type 2 diabetes mellitus with hyperglycemia: Code(s): E11.65 - Type 2 diabetes mellitus with hyperglycemia Category: Medical Qualifiers: Diabetes mellitus oysterman insulin use: without skilled nursing use Qualified Code(s): E11.65 - Type 2 diabetes mellitus with hyperglycemia Plan: Patient's type 2 diabetes well controlled with current dose of metformin. He has been trying to stay consistent with a diabetic diet. Goal A1c is to remain below 7.0 Orders: Orders Lipid Panel Today E78.2 - Mixed hyperlipidemia AMB Hemoglobin A1c Today Z13.9 - Encounter for screening, unspecified CT abdomen pelvis wo IV con Today R10.30 - Lower abdominal pain, unspecified Complete Blood Count no Diff Today E11.65 - Type 2 diabetes mellitus with hyperglycemia Comprehensive [place]. Panel Fast Today E11.65 - Type 2 diabetes mellitus with hyperglycemia Prostate Specific Antigen Scr Today R97.20 - Elevated prostate specific antigen [PSA], Z12.5 - Encounter for screening for malignant neoplasm of prostate Medications: New fluticasone furoate-vilanterol 100-25 mcg/dose (Breo Ellipta) 1 inh inhalation DAILY 60 ea 2RF 30 days J41.0 - Simple chronic bronchitis atorvastatin (Lipitor) 10 mg PO DAILY 90 tabs 1RF 90 days E78.2 - Mixed hyperlipidemia montelukast 10 mg PO DAILY 90 tabs 2RF 90 days J41.0 - Simple chronic bronchitis prednisone see taper instructions 5 mg PO DAILY 21 tabs 0RF 21 days J41.0 - Simple chronic bronchitis [Pre refillable med box] As directed 1 ea 0RF I10 - Essential (primary) hypertension Refilled finasteride 5 mg PO DAILY 90 tabs 1RF 90 days R97.20 - Elevated prostate specific antigen [PSA] metformin 500 mg PO BIDWMEAL 180 tabs 3RF 90 days E11.65 - Type 2 diabetes mellitus with hyperglycemia Discontinued Anoro Ellipta 62.5-25 mcg/actuation (umeclidinium-vilanterol) Discontinued Reason: Doctor's Order 1 inh inhalation DAILY 30 days 1 ea 6RF NS R06.09 - Other forms of dyspnea
[2025-09-05 14:09] VITALS: BP 166/86; PULSE 108; TEMP 36.3; O2SAT 90; BMI 26.3
== END 2025-09-05 14:45 | disposition home or self-care (01) ==
LOC: HO.HMCH 14:01
PROVIDERS: PCP Physician Assistant; Visit Provider Physician Assistant
DX: J41.0 Simple chronic bronchitis (principal); E78.2 Mixed hyperlipidemia; D64.9 Anemia, unspecified; R10.30 Lower abdominal pain, unspecified; E11.65 Type 2 diabetes mellitus with hyperglycemia; Z13.9 Encounter for screening, unspecified

== ENCOUNTER → 2025-09-05 14:00 | Outpatient (BNVA) | payer MEDICARE, SELFPAY | PROVIDERS: PCP Physician Assistant; Visit Provider Physician Assistant | DX: J41.0 Simple chronic bronchitis (principal); E78.2 Mixed hyperlipidemia; D64.9 Anemia, unspecified; R10.30 Lower abdominal pain, unspecified; E11.65 Type 2 diabetes mellitus with hyperglycemia | CPT/HCPCS: 83036; 99212 ==

== ENCOUNTER 2025-09-14 15:55 | Outpatient (AMB) | payer MEDICARE, SELFPAY ==
[2025-09-14 15:59] VITALS: BP 160/82; PULSE 117; O2SAT 93; BMI 26.5
--- NOTE | 2025-09-14 15:59 | A.OFFVIS_ITS ---
Vital Signs 09/14/25 15:59 Height 5 ft 11 in Weight 190 lb BMI 26.5 BP 160/82 H Blood Pressure Location Rt brachial Position Sitting Pulse 117 H Pulse Source Pulse Oximeter Pulse Oximetry (%) 93 Oxygen Delivery Method Nasal Cannula Oxygen Flow Rate 2 Intake Visit Reasons: COPD Allergies No Known Allergies Allergy (Verified 09/14/25 16:03) HPI HPI COPD: Details: 79-year-old gentleman, 40+ pack-year smoker, quit 2006 followed for very severe COPD supplemental oxygen dependent utilizing portable oxygen concentrator and pulmonary nodules. Patient's Anoro is too expensive for him at this time. He had his nocturnal supplemental oxygen evaluation and continues to require supplemental oxygen. Patient is also complain of sleep apnea symptoms including snoring and unrestful sleep. [facility] Medical History Cataracts, bilateral Surgical History History of cataract Social History Housing: House Alcohol intake: never Patient Tobacco Use Status: Former Tobacco user Tobacco use type: Cigarette e-Cigarette/Vaping Use: Never Used Second Hand Smoke Exposure: Yes service: Yes Current occupational status: retired Cognitive needs: No Hearing needs: No Vision needs: Yes Review of Systems Const Reports daytime sleepiness and Reports snoring Resp Denies cough, Denies hemoptysis, Denies excessive phlegm production, Reports snoring and Denies wheezing Aller/Immun Denies wheezing Physical Exam Vital Signs: Last Vital Signs Pulse 117 H 09/14/25 15:59 BP 160/82 H 09/14/25 15:59 Pulse Ox 93 09/14/25 15:59 Oxygen Delivery Method Nasal Cannula 09/14/25 15:59 Oxygen Flow Rate 2 09/14/25 15:59 BMI result Body Mass Index 26.5 Const General: no acute distress and alert Nutritional Appearance: not obese HEENT Head: Yes atraumatic Eyes General: appearance normal, both eyes and all related structures Sclerae: sclerae normal EOM: EOMs intact bilaterally Neck Neck: Yes supple Lymphatic: no lymphadenopathy noted Resp Effort & Inspection: normal respiratory effort and no use of accessory muscles Auscultation: clear to auscultation bilaterally Cardio Rate: regular rate Rhythm: regular rhythm Heart sounds: no gallops, no murmurs and no rubs Skin General skin exam: other ( warm) Extrem General: No clubbing, No cyanosis and No edema Assessment & Plan Assessment & Plan (1) COPD (chronic obstructive pulmonary disease): Code(s): J44.9 - Chronic obstructive pulmonary disease, unspecified Category: Medical Qualifiers: COPD type: chronic bronchitis Chronic bronchitis type: simple Qualified Code(s): J41.0 - Simple chronic bronchitis Plan: Suboptimal control as Anoro is too expensive, will try on Stiolto. Continue albuterol MDI. (2) Supplemental oxygen dependent: Code(s): Z99.81 - Dependence on supplemental oxygen Category: Medical Plan: Continue supplemental oxygen to maintain O2 saturation above 88%. (3) UJSTIN (obstructive sleep apnea): Code(s): G47.33 - Obstructive sleep apnea (adult) (pediatric) Category: Medical Plan: Unrestful sleep, daytime sleepiness, snoring. Will obtain home sleep study. Orders: Orders RT home sleep study 09/14/25 G47.33 - Obstructive sleep apnea (adult) (pediatric) Medications: New tiotropium-olodaterol 2.5-2.5 mcg/actuation (Stiolto Respimat) 2 puffs inhalation DAILY 4 grams 6RF Discontinued fluticasone furoate-vilanterol 100-25 mcg/dose (Breo Ellipta) Discontinued Reason: Doctor's Order 1 inh inhalation DAILY 30 days 60 ea 2RF J41.0 - Simple chronic bronchitis Coding Level of Care Code Est Pt Level 4 (02262) Complex EM visit Add On G2211 Diagnoses Simple chronic bronchitis J41.0 COPD type: chronic bronchitis Chronic bronchitis type: simple Supplemental oxygen dependent Z99.81 JUSTIN (obstructive sleep apnea) G47.33
--- OUTSIDE RECORDS SUMMARY | 2025-09-15 04:33 | XMS_ITS ---
Author Organization Unknown ENCOUNTERS Encounter Performer Location Date Diagnosis Diagnosis Status Emergency [address] [id number] JACOB Pre Admit [address] [address] [id number] *Note: Encounters from your own facility or health system may be excluded. Allergies, Adverse Reactions, Alerts Allergen Type Severity Identification Date Medications Name Date Quantity Days Supplied GPI Number
== END 2025-09-14 16:34 | disposition home or self-care (01) ==
LOC: HO.HPS 15:56
PROVIDERS: PCP Physician Assistant; Visit Provider Internal Medicine Pulmonary Disease
DX: J41.0 Simple chronic bronchitis (principal); Z99.81 Dependence on supplemental oxygen; G47.33 Obstructive sleep apnea (adult) (pediatric)
CPT/HCPCS: 99214; G2211

== ENCOUNTER → 2025-09-14 15:55 | Outpatient (BNVA) | payer MEDICARE, SELFPAY | PROVIDERS: PCP Physician Assistant; Visit Provider Internal Medicine Pulmonary Disease | DX: J41.0 Simple chronic bronchitis (principal); Z99.81 Dependence on supplemental oxygen; G47.33 Obstructive sleep apnea (adult) (pediatric); R06.83 Snoring; Z87.891 Personal history of nicotine dependence; R40.0 Somnolence | CPT/HCPCS: 99212 ==

== ENCOUNTER 2025-10-24 15:05 | Outpatient (AMB) | payer MEDICARE, SELFPAY ==
--- NOTE | 2025-10-24 15:07 | MHC.OFFVIS ---
Vital Signs 10/24/25 15:09 Height 5 ft 11 in Weight 188 lb BMI 26.2 BP 152/92 H Blood Pressure Location Lt brachial Position Sitting Pulse 101 H Pulse Source Pulse Oximeter Pulse Oximetry (%) 93 Oxygen Delivery Method Nasal Cannula Oxygen Flow Rate 3 Intake Visit Reasons: COPD Allergies No Known Allergies Allergy (Verified 10/24/25 15:16) HPI HPI COPD: Details: 79-year-old gentleman, 40+ pack-year smoker, quit 2006 followed for very severe COPD supplemental oxygen dependent utilizing portable oxygen concentrator and pulmonary nodules. After the last office visit patient was switched to Stiolto with improved symptom control. He also completed his sleep study that did not show underlying sleep apnea. He denies recent exacerbations. [facility] Medical History Cataracts, bilateral Surgical History History of cataract Social History Housing: House Alcohol intake: never Patient Tobacco Use Status: Former Tobacco user Tobacco use type: Cigarette e-Cigarette/Vaping Use: Never Used Second Hand Smoke Exposure: Yes service: Yes Current occupational status: retired Cognitive needs: No Hearing needs: No Vision needs: Yes Review of Systems Const Denies daytime sleepiness, Denies excessive sweating, Denies fatigue, Denies fever(s), Denies lethargy, Denies malaise, Denies night sweats, Denies snoring and Denies weight loss Eyes Denies blurry vision and Denies itchy eyes ENT Denies nasal congestion, Denies post nasal drip, Denies sinus pain, Denies sinus pressure and Denies other ( Thrush) Card Denies chest pain, Denies pedal edema, Denies dyspnea, Denies orthopnea and Denies paroxysmal nocturnal dyspnea Resp Denies cough, Denies hemoptysis, Denies excessive phlegm production, Denies dyspnea, Denies snoring and Denies wheezing GI Denies abdominal pain and Denies heartburn Musc Denies myalgias, Denies arthralgias and Denies joint swelling Skin/Breast Denies rash Neuro Denies memory loss and Denies seizure-like activity Psych Denies abnormal sleep pattern, Denies anxiety and Denies memory loss Endo Denies excessive sweating, Denies fatigue and Denies heat intolerance Ford/Lymph Denies easy bruising Aller/Immun Denies itchy eyes, Denies seasonal rhinorrhea and Denies wheezing Physical Exam Vital Signs: Last Vital Signs Pulse 101 H 10/24/25 15:09 BP 152/92 H 10/24/25 15:09 Pulse Ox 93 10/24/25 15:09 Oxygen Delivery Method Nasal Cannula 10/24/25 15:09 Oxygen Flow Rate 3 10/24/25 15:09 BMI result Body Mass Index 26.2 Const General: no acute distress and alert Nutritional Appearance: not obese Orientation/consciousness: Other orientation findings ( oriented) HEENT Head: Yes atraumatic Eyes General: appearance normal, both eyes and all related structures Sclerae: sclerae normal EOM: EOMs intact bilaterally Neck Neck: Yes supple Lymphatic: no lymphadenopathy noted Resp Effort & Inspection: normal respiratory effort and no use of accessory muscles Auscultation: clear to auscultation bilaterally Cardio Rate: regular rate Rhythm: regular rhythm Heart sounds: no gallops, no murmurs and no rubs Skin General skin exam: other ( warm) Extrem General: No clubbing, No cyanosis and No edema Assessment & Plan Assessment & Plan (1) COPD (chronic obstructive pulmonary disease): Code(s): J44.9 - Chronic obstructive pulmonary disease, unspecified Category: Medical Qualifiers: COPD type: chronic bronchitis Chronic bronchitis type: simple Qualified Code(s): J41.0 - Simple chronic bronchitis Plan: Controlled current regimen of Stiolto and albuterol MDI. Continue current regimen. (2) Supplemental oxygen dependent: Code(s): Z99.81 - Dependence on supplemental oxygen Category: Medical Plan: Continue supplemental oxygen to maintain O2 saturation of 88-93%. Coding Level of Care Code Est Pt Level 4 (64149) Diagnoses Simple chronic bronchitis J41.0 COPD type: chronic bronchitis Chronic bronchitis type: simple Supplemental oxygen dependent Z99.81
[2025-10-24 15:09] VITALS: BP 152/92; PULSE 101; O2SAT 93; BMI 26.2
== END 2025-10-24 15:31 | disposition home or self-care (01) ==
LOC: HO.HPS 15:06
PROVIDERS: PCP Physician Assistant; Visit Provider Internal Medicine Pulmonary Disease
DX: J41.0 Simple chronic bronchitis (principal); Z99.81 Dependence on supplemental oxygen
CPT/HCPCS: 99214

== ENCOUNTER → 2025-10-24 15:05 | Outpatient (BNVA) | payer MEDICARE, SELFPAY | PROVIDERS: PCP Physician Assistant; Visit Provider Internal Medicine Pulmonary Disease | DX: J41.0 Simple chronic bronchitis (principal); Z99.81 Dependence on supplemental oxygen | CPT/HCPCS: 99212 ==